=== PATIENT | female | born 2000 | race Caucasian/White ===

== ENCOUNTER 2022-07-24 16:27 | Emergency (ER) | payer BC, SELFPAY ==
[2022-07-24 16:33] VITALS: BP 115/72; PULSE 110; RESP 14; TEMP 37.1; O2SAT 100
--- NOTE | 2022-07-24 16:34 | ED.URI ---
HPI - URI/Sore Throat General Chief Complaint: Upper Respiratory Infection Stated Complaint: sore throat fever Time Seen by Provider: 07/24/22 16:34 Source: patient, family and RN notes reviewed History of Present Illness HPI Narrative: Patient is a 21-year-old female who presents the urgent care with complaints of sore throat, fever and runny nose. Patient states symptoms started on Sunday and denies of any ill exposures. Patient has been taking Tylenol for her symptoms. Also reports of a mild headache. No other acute complaints. No acute distress noted. Patient aware of the plan of care. Some parts of this dictation were generated by voice recognition software and may contain typographical and/or grammatical inaccuracies. Related Data Home Medications Medication Instructions Recorded Confirmed norelgestromin 150 mcg-e.estradiol 1 patch transdermal WEEKLY 07/24/22 07/24/22 35 mcg/24 hr weekly transderm patch (Xulane) Allergies Allergy/AdvReac Type Severity Reaction Status Date / Time No Known Allergies Allergy Verified 07/24/22 16:56 Review of Systems Review of Systems: CONSTITUTIONAL: Reports a fever EYES: Denies visual changes, redness, or discharge. ENT: Reports of rhinorrhea and sore throat CARDIOVASCULAR: Denies chest pain, palpitations, or edema. RESPIRATORY: Denies cough or dyspnea. GASTROINTESTINAL: Denies abdominal pain, nausea, vomiting, or diarrhea. GENITOURINARY: Denies dysuria or hematuria. SKIN: Denies rash or itching. MUSCULOSKELETAL: Denies back pain, joint pain, or myalgia. NEUROLOGIC: Denies headache, numbness, or weakness. All other systems reviewed are negative, except as documented in HPI. PMFSH Comments At the time of my signature, I reviewed and agree with the nursing past medical, surgical, social, and family history. There is no relevant family history pertinent to the patient complaint. Exam Narrative: GENERAL: This is a well-nourished, well-developed patient, in no apparent distress. HEAD: normocephalic, atraumatic. EYES: PERRL. Sclera clear/white. Vision is grossly intact. EARS: External ears normal, auditory canals clear and without drainage, TMs normal without perforation. Hearing grossly intact. NOSE: External nose normal with no obvious nasal discharge, nares without redness, clear rhinorrhea. THROAT: Mucous membranes moist. Mild erythema noted posterior pharynx with moderate postnasal drainage NECK: Neck supple, non-tender without lymphadenopathy CARDIOVASCULAR: Regular rate and rhythm without murmurs, gallops, or rubs. RESPIRATORY: Clear to auscultation. Breath sounds equal bilaterally. No wheezes, rales, or rhonchi. SKIN: warm, intact with no suspicious lesions or rash, good texture and turgor. NEURO: awake, alert, and oriented to person, place and time. There were no obvious focal neurologic abnormalities. EXTREMITIES: No clubbing, cyanosis, or edema. Course Course Level of Care: Express Care Visit Vital Signs Vital signs: Vital Signs Temperature 98.8 F 07/24/22 16:33 Pulse Rate 110 H 07/24/22 16:33 Respiratory Rate 14 07/24/22 16:33 Blood Pressure 115/72 07/24/22 16:33 Pulse Oximetry 100 07/24/22 16:33 Oxygen Delivery Room Air 07/24/22 16:33 Temperature 98.8 F 07/24/22 16:33 Pulse Rate 110 H 07/24/22 16:33 Respiratory Rate 14 07/24/22 16:33 Blood Pressure 115/72 07/24/22 16:33 Pulse Oximetry 100 07/24/22 16:33 Oxygen Delivery Room Air 07/24/22 16:33 Reviewed MDM - URI/Sore Throat MDM Narrative Medical decision making narrative: Reviewed lab results with the patient. She is aware that strep swab was negative. Educated patient on culture we will call within 72 hours if culture is positive and antibiotics necessary. Advised the patient to use [id number] Claritin or Zyrtec during the day and Benadryl prior to bedtime. Use Tylenol/ibuprofen as needed. Do not sleep with a fan on or the windows open. Use a
== END 2022-07-24 17:03 | disposition home or self-care (01) ==
PROVIDERS: Emergency Provider Nurse Practitioner Family; PCP Family Medicine
DX: J02.9 Acute pharyngitis, unspecified (principal)
CPT/HCPCS: 87081; 87880; 99213; G0463

== ENCOUNTER 2023-09-27 10:34 | Emergency (ER) | payer BC, SELFPAY ==
[2023-09-27 10:45] VITALS: BP 115/79; PULSE 81; RESP 16; TEMP 37.1; O2SAT 100
--- NOTE | 2023-09-27 11:26 | ED.GENADULT ---
HPI - General Adult General Chief complaint: Ear Stated complaint: Ear Pain/Sore Throat/Headache/Shortness of Breath Time Seen by Provider: 09/27/23 11:26 Source: patient, RN notes reviewed and old records reviewed Mode of arrival: ambulatory Limitations: no limitations History of Present Illness HPI narrative: 22-year-old female presents to the [facility] complaints of right ear pain, sore throat, headache, cough for 1 week. Denies fevers. Has taken DayQuil and NyQuil, Sudafed with no relief. Onset (ago): week(s) (1) Related Data Allergies Allergy/AdvReac Type Severity Reaction Status Date / Time No Known Allergies Allergy Verified 07/24/22 16:56 Review of Systems Review of Systems: All systems reviewed & are unremarkable except as noted in HPI and below Constitutional: Constitutional: Reports no additional constitutional complaints Eyes: Eyes: Reports no additional eye complaints ENT: Reports as per HPI, Denies ear discharge, Reports otalgia (right) and Reports sore throat Cardiovascular: Cardiovascular: Reports no additional cardiovascular complaints, Denies chest pain and Denies dyspnea Respiratory: Respiratory: Reports no additional respiratory complaints, Denies chest congestion, Denies cough and Denies dyspnea Gastrointestinal: Gastrointestinal: Reports no additional gastrointestinal complaints, Denies abdominal pain, Denies nausea and Denies vomiting Musculoskeletal: Musculoskeletal: Reports no additional musculoskeletal complaints Integumentary/Breasts: Skin/Breast: Reports system reviewed and no additional complaints, except as docu Neurologic: Reports system reviewed and no additional complaints, except as documented Psychiatric: Psychiatric: Reports no additional psychiatric complaints Allergic/Immunologic: Allergic/Immunologic: Reports no additional allergic/immunologic complaints PMFSH Comments At the time of my signature, I reviewed and agree with the nursing past medical, surgical, social, and family history. There is no relevant family history pertinent to the patient complaint. Exam Const: General: cooperative, healthy appearing, comfortable, no acute distress, well developed, alert and well nourished Nutritional Appearance: well nourished Orientation/consciousness: patient oriented x3 Limitations: no limitations HENMT: Head: normal to inspection Ears: hearing grossly normal bilaterally, external ears normal and TM abnormal bulging on the right and wth effusion serous bilateral; not erythematous, with no loss of landmarks and not perforated Face/Nose/Sinus: Normal external nose present, Normal nares present, Normal nasal mucous membranes and turbinates present, Nasal discharge present clear bilateral, normal facial exam and face symmetric Face and sinus: normal facial exam and face symmetric Mouth: Yes Normal oral and palatal mucosa present, Yes lip normal and Yes moist mucous membranes Throat: posterior oropharynx normal, uvula midline and postnasal drainage Eyes: General: appearance normal, both eyes and all related structures Alignment and Position: alignment normal Periorbital: periorbital findings normal Pupils: Equal, round and reactive pupils present EOM: EOMs intact bilaterally Neck: Neck: normal visual inspection, full ROM, no lymphadenopathy and no meningeal signs Chest: Chest palpation & inspection: normal inspection of the chest Resp: Effort & Inspection: normal respiratory effort and able to speak in complete sentences Auscultation: clear to auscultation bilaterally, no crackles, no rales, no rhonchi and no wheezes Cardio: Rate: regular rate Rhythm: regular rhythm Back/Spine/Pelvis: Cervical Spine: cervical ROM normal Skin: General skin exam: normal color and no rashes or lesions noted Lesions: no lesions Rashes: no rashes Wounds: no wounds Neuro: General: patient oriented x3, gait normal, tone normal, moves all extremities and no meningeal signs Cranial nerves: Yes Eq
== END 2023-09-27 11:53 | disposition home or self-care (01) ==
PROVIDERS: Emergency Provider Nurse Practitioner; PCP Family Medicine
DX: H65.01 Acute serous otitis media, right ear (principal); J06.9 Acute upper respiratory infection, unspecified
CPT/HCPCS: 99213; G0463

== ENCOUNTER 2024-03-29 13:36 | Emergency (ER) | payer BC, SELFPAY ==
[2024-03-29 13:40] VITALS: BP 131/73; PULSE 79; RESP 14; TEMP 36.7; O2SAT 100
--- NOTE | 2024-03-29 14:07 | ED.URI ---
HPI - URI/Sore Throat General Chief Complaint: Upper Respiratory Infection Stated Complaint: cough/ear/congestion Time Seen by Provider: 03/29/24 14:00 Source: patient, RN notes reviewed and old records reviewed Mode of arrival: ambulatory Limitations: no limitations History of Present Illness HPI Narrative: 23-year-old female who presents to Express Care complaints sinus congestion drainage and right ear past 4 days. Patient's reports that she had a fever on Sunday max of 100.6F. She reports that she has been taking DayQuil and also Ibuprofen for her symptoms without resolution. MD elicited complaint: rhinorrhea, nasal congestion and other (right ear pain) Onset (ago): day(s) (4) Pain scale (0-10): 7 Able to tolerate fluids by mouth: Yes Treatments prior to arrival: ibuprofen and other (DayQuil) Related Data Allergies Allergy/AdvReac Type Severity Reaction Status Date / Time No Known Allergies Allergy Verified 03/29/24 14:01 Review of Systems Review of Systems: CONSTITUTIONAL: Denies malaise, chills, sweats, or fever. EYES: Denies visual changes, redness, or discharge. ENT: Reports rhinorrhea, congestion, sinus pain, right otalgia and sore throat. CARDIOVASCULAR: Denies chest pain, palpitations, or edema. RESPIRATORY: Reports cough.? Denies dyspnea. GASTROINTESTINAL: Denies abdominal pain, nausea, vomiting, diarrhea SKIN: Denies rash or itching. MUSCULOSKELETAL: Denies myalgia. NEUROLOGIC: Denies headache. All systems reviewed & are unremarkable except as noted in HPI and below PMFSH Past Medical History Medical History Anxiety and depression Surgical History Surgical History History of placement of ear tubes History of tonsillectomy Social History Social History Smoking status: Current every day smoker Tobacco type: e-cigarettes/vaping Alcohol intake: current Alcohol use details: social Substance use type: does not use Living arrangements: with family Gender identity (if verbalized by the patient): Female Comments At time of signature, agree with nursing past medical, surgical, social and family history. There is no relevant family history pertinent to the presenting complaint Exam Narrative: GENERAL: Well-appearing, well-nourished, and in no acute distress. HEAD: Normocephalic EYES: PERRLA, conjunctivae clear ENT: Nares clear, turbinates edematous and erythematous, clear discharge. Mucous membranes moist.Right TM red with luisa reness to canal,Left TM pearly olivares with dull light reflex b; no tragal tenderness. Oropharynx erythematous without lesions. Tonsils not present and throat without exudate, no drooling, no hoarseness, no trismus, uvula midline. NECK: Supple. No lymphadenopathy CHEST: Clear to auscultation, breath sounds equal. No wheezing, rhonchi, rales, or stridor. No respiratory distress, speaks in full sentences.SAO2 100% on room air HEART: Regular rate and rhythm. No murmur heard. SKIN: Warm, dry, no rash. NEURO: Alert and oriented x3. PSYCH: Normal mood and affect Course Course Emergency Course: Patient is aware of diagnosis, understands and agrees to treatment plan.? Anticipatory guidance given.? Patient agrees to follow-up as directed and is aware of reasons to seek care at the emergency department. Portions of this record may have been created with voice recognition software Level of Care: Express Care Visit Vital Signs Vital signs: Vital Signs Temperature 36.7 C 03/29/24 13:40 Pulse Rate 79 03/29/24 13:40 Respiratory Rate 14 03/29/24 13:40 Blood Pressure 131/73 03/29/24 13:40 Pulse Oximetry 100 03/29/24 13:40 Oxygen Delivery Room Air 03/29/24 13:40 Temperature 36.7 C 03/29/24 13:40 Pulse Rate 79 03/29/24 13:40 Respiratory Rate 1
== END 2024-03-29 14:20 | disposition home or self-care (01) ==
PROVIDERS: Emergency Provider Registered Nurse; PCP Family Medicine
DX: H66.91 Otitis media, unspecified, right ear (principal); H60.91 Unspecified otitis externa, right ear; F17.290 Nicotine dependence, other tobacco product, uncomplicated
CPT/HCPCS: 99213; G0463

== ENCOUNTER 2024-11-24 16:37 | Emergency (ER) | payer BC, SELFPAY ==
--- OUTSIDE RECORDS SUMMARY | 2024-11-24 16:39 | XMS_ITS | Clinical Summary ---
Author Organization [facility] Address [address] [place] [address] Phone Care Team Providers Care Petroleum Laboratory Technician Name Role Phone Chas Chambers MD Primary Care Provider [phone] Allergies No known active allergies Medications FLUoxetine (PROzac) 20 MG CapsuleIndicatio ns:Anxiety and depression Take 1 Capsule by mouth daily. 90 Capsule 2 Active Norelgestromin-E th Estradiol (Xulane) 150-35 MCG/24HR PATCH WEEKLYIndication s:Heavy Menstrual Bleeding 1 Patch by Transdermal route every 7 days. X 3 then one week without patch Indications: Excessive Amount of Menstrual Volume 3 Patch 11 2 Active SUMAtriptan (IMITREX) 100 MG TabletIndication s:Chronic intractable headache, unspecified headache type Take 1 Tablet by mouth daily as needed for Migraine. Use as directed. May repeat dose in 2 hours if headache recurs. 9 Tablet 3 2 Active ondansetron (ZOFRAN-ODT) 4 MG TABLET DISPERSIBLEIndic ations:Chronic intractable headache, unspecified headache type Take 1 Tablet by mouth every 8 hours as needed for Nausea - 1st line. 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 Immunizations Immunization Administration Dates Next Due Covid-19, Mrna, Lnp-s, Pf, 3 0 Mcg/0.3 Ml Dose (LiquidPlanner) 08/02/2021,07/12/2021 DTAP VACCINE 05/23/2007, 5,07/28/2003,03/26,02/19/2003 HEP B/HIB Combined Vaccine 07/30/2003,03/26/2003 ,02/19/2003 Hepatitis B Vaccine 07/30/2003,03/26/2003,2002 Hib Vaccine,unspecified Formulation 04/27/2005,0 03/26/2003,02/19/2003 Hpv, Unspecified Formulation 11/19/2017,05/15/20 17 Human Papillomavirus (HPV) 9 -valent Vaccine 03/22/2018,11/19/2017,05/15/2017 Inactivated Polio Vaccine 05/23/2007,05/2004,03/26/2003,02/19 Influenza Vaccine, Quadrivalent, PF 06/27/2022,1 ,07/29/2020 MMR Vaccine 05/23/2007,01/21/2004 Meningococcal Group B OMV 06/27/2022 Meningococcal MCV4O 07/29/2020 Meningococcal Vaccine 07/29/2020,05/15/2017,05/15 TDAP Vaccine 05/15/2017,05/29/2014 Varicella Vaccine Live 05/23/2007,04/27/2005 Family History Medical History Relation Name Comments Leukemia/Lymphoma Father Diabetes Mother Narcolepsy Mother Relation Name Status Comments Father Alive Mother Alive Social History Tobacco Use Types Packs/Day Years Used Date Smoking Tobacco: Never Smokeless Tobacco: Never Tobacco Cessation:Counseling Given: Yes Alcohol Use Standard Drinks/Week Comments Never 0 (1 standard drink = 0.6 oz pur e alcohol) AUDIT-C Answer Date Recorded Q1: How often do you have a drink containing alc ohol? Never 11/04/2020 Average Number of Drinks Not on file 021 Frequency of Binge Drinking Not on file 10/16 PHQ-2 Answer Date Recorded Total Score - Questions 1-9 0 10/16 Education Answer Date Recorded What is the highest level of school you have completed or the highest degree you have received? 12th grade 11/10/2021 Comments No Sex and Gender Information Value Date Recorded Sex Assigned at Not on file Legal Sex Female 8:34 PM CDT Gender Identity Not on file Sexual Orientation Not on file Last Filed Vital Signs Vital Sign Reading Time Taken Comments Blood Pressure 114/64 06/27/2022 1:07 PM CDT Pulse 122 06/27/2022 1:07 PM CDT Temperature 36.6 C (97.8 F) 06/27/2022 1:07 PM CDT Respiratory Rate 14 06/27/2022 1:07 PM CDT Oxygen Saturation 98% 06/27/2022 1:07 PM CDT Inhaled Oxygen Concentration - - Weight 60.1 kg (132 lb 8 oz) 06/27/2022 1:07 PM CDT Height 157.5 cm (5' 2 ) 06/27/2022 1:07 PM CDT Body Mass Index 24.23 06/27/2022 1:07 PM CDT Plan of Treatment Health Maintenance Due Date Last Done Comments Hepatitis C Virus (HCV) Screening 2002 Meningococcal B Immunization (2 of 2 - Bexsero SCDM 2-dose series) 12/25/2022 06/27/2022 Influenza Immunization (#1) 06/15/202406/15, 10/13/2021, 07/29/2020 SARS-COV-2 Immunization ( season) 2024 08/02/2021, 07/12/2021 DTaP/Tdap/Td Immunization (8 - Td or Tdap) 05/15/2027 05/15/2017, 05/29/2014, 05/23/2007, Additional history exists Respiratory Syncytial Virus (RSV) Immunization (Adult) (1 - 1-dose 75+ series) 2077 Hepatitis B Immunization Completed 003, 07/30/2003, 03/26/2003, Additional history exists Measles Mumps Rubella (MMR) Immunization Discontinued 05/23/2007, 01/21/2004 Polio (IPV) Immunization Discontinued 007, 01/21/2004, 03/26/2003, Additional history exists Varicella Immunization Discontinued 05/23/2007, 2004 Human Papillomavirus (HPV) Immunization Completed 03/22/2018, 11/19/2017, 11/19/2017, Additional history exists Meningococcal Immunization (ACWY) Completed 07/29/2020, 07/29/2020, 05/15/2017, Additional history exists Pneumococcal Immunization Combined Aged Out No longer eligible based on patient's age to complete this topic Rotavirus Immunization Aged Out No lo nger eligible based on patient's age to complete this topic Insurance [facility] Care Teams Petroleum Laboratory Technician Relationship Specialty Start Date End Date Chas Chambers MD PCP - General Family Medicine 08/05/20
--- OUTSIDE RECORDS SUMMARY | 2024-11-24 16:40 | XMS_ITS | Clinical Summary ---
Author Organization [facility] Address [address] [place] [address] Phone Care Team Providers Care Director Stars Name Role Phone DAY GOMEZ DO Unavailable [phone] Reason for Visit and Chief Complaint The Chief Complaint is: Per mom still having HAs and has been to 2 eye doctors and both said LT eyestill has some optic swelling--recommended her seeing eye doctor at [facility] Problems Includes: Problems addressed during this encounter and other active Problems All Visits Onset Date Resolved Date Provider Condition S tatus Asthma 05/25/2014 LISA Pedro PA-C Active Last Documented On 05/15/2017 11:44AM ; [facility] Note: Worse as a child--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 Plan of Treatment Referrals To Diagnosis Ophthalmology [facility] - [address] [place] [address] - Optic papillitis, left eye Note: Children[facility] please Last Documented On 8 1:41PM ; [facility] Assessments Includes: Assessments from this encounter Findings - Optic papillitis ? - Last Documented On 10/26/2017 1:43PM ; [facility] Medical Equipment - Implanted Devices Includes: Current Devices No Medical Equipment Recorded Medications Includes: Medications discussed during this encounter and other current Medications Current Medications (continue as prescribed) Amoxicillin-Pot Clavulanate 875-125 MG Oral Tablet 02/18/2024 Provider: ALANNA CLEMENTP-C Diagnosis: Otitis media, unspecified, left ear One tablet twice a day Last Documented On 4 4:10PM By Alanna ALAMO ; [facility] Paxil 20MG Oral Tablet 11/19/2017 Provider: AJVON HANCOCK MD Diagnosis: Anxiety disorder , unspecified One tablet daily Last Documented On 8 11:17PM By SELENA HANCOCK MD ; [facility] Lo Loestrin Fe 1 MG-10 MCG /10 MCG Oral Tablet 03/13/2017 Provider: SELENA Potts Diagnosis: Dysmenorrhea, un specified Take one daily at the same t bernardo each day. Last Documented On 7 5:02PM By SELENA HANCOCK MD ; [facility] Medications Administered Includes: Administered Medications from this encounter No Administered Medications Recorded Results Includes: Results discussed during this encounter No Results Recorded For Specified Dates History of Present Illness Includes: History of Present Illness from this encounter No History of Present Illness Recorded Social History Description Last Updated Smoking status : Never smoker 11/19/2017 Last Documented On 8 1:43PM ; [facility] No tobacco use 05/15/2017 Last Documented On 8 1:43PM ; [facility] Not using alcohol 05/15/2017 Last Documented On 8 1:43PM ; [facility] Not using drugs 05/15/2017 Last Documented On 8 1:43PM ; [facility] Not sexually active has never been 10/03 Last Documented On 8 1:43PM ; [facility] Playing sports poms 07/27/2016 Last Documented On 8 1:43PM ; [facility] Using seatbelts 06/12/2016 Last Documented On 8 1:43PM ; [facility] The racial background was unknown ethnic minority 05/25/2014 Last Documented On 8 1:43PM ; [facility] Child enrolled in day-care 03/01/2009 Last Documented On 8 1:43PM ; [facility] Lives with parents 03/01/2009 Last Documented On 8 1:43PM ; [facility] Medical History Includes: Medical History addressed during this encounter Description Last Updated A recent examination by an ophthalmologi st 08/201605/15/2017 Last Documented On 8 1:43PM ; [facility] Blood pressure was not high 05/15/2017 Last Documented On 8 1:43PM ; [facility] No cardiac problems 05/15/2017 Last Documented On 8 1:43PM ; [facility] No exposure to tuberculosis 05/15/2017 Last Documented On 8 1:43PM ; [facility] No history of asthma 05/15/2017 Last Documented On 8 1:43PM ; [facility] No orthopedic problems 05/15/2017 Last Documented On 8 1:43PM ; [facility] No Surgery 05/15/2017 Last Documented On 8 1:43PM ; [facility] No physical trauma 07/27/2016 Last Documented On 8 1:43PM ; [facility] No physical trauma while playing a sport 07/27/2016 Last Documented On 8 1:43PM ; [facility] 0 05/30/2016 Last Documented On 8 1:43PM ; [facility] No other medical history reported Signs of Insulin Resistance 05/25/2014 Last Documented On 8 1:43PM ; [facility] No recent severe illness or injury 05/25 Last Documented On 8 1:43PM ; [facility] Currently wearing eyeglasses 05/25/2014 Last Documented On 8 1:43PM ; [facility] No hearing problems 05/25/2014 Last Documented On 8 1:43PM ; [facility] No heart murmur 05/25/2014 Last Documented On 8 1:43PM ; [facility] No history of concussion 05/25/2014 Last Documented On 8 1:43PM ; [facility] No history of delayed milestones 014 Last Documented On 8 1:43PM ; [facility] No history of diabetes mellitus 05/25/20 14 Last Documented On 8 1:43PM ; [facility] No history of hematologic disorder 05/25 Last Documented On 8 1:43PM ; [facility] No history of sickle cell abnormality Last Documented On 8 1:43PM ; [facility] No loss of function of one of paired org ans 05/25/2014 Last Documented On 8 1:43PM ; [facility] No previous hospitalizations 05/25/2014 Last Documented On 8 1:43PM ; [facility] No trauma to the head 05/25/2014 Last Documented On 8 1:43PM ; [facility] Not born with congenital abnormalities 0 05/25/2014 Last Documented On 8 1:43PM ; [facility] Not carrying hemophilia A 05/25/2014 Last Documented On 8 1:43PM ; [facility] section 03/01/2009 Last Documented On 8 1:43PM ; [facility] No frequent sore throats 03/01/2009 Last Documented On 8 1:43PM ; [facility] No history of pneumonia 03/01/2009 Last Documented On 8 1:43PM ; [facility] Recurrent bacterial ear infections durin g childhood 03/01/2009 Last Documented On 8 1:43PM ; [facility] Family History Includes: Family History addressed during this encounter Description Last Updated Family history of sudden ear ly deaths great grandpas- heart exploded, lung cancer 05/15/2017 Last Documented On 8 1:43PM ; [facility] Maternal history of blood pressure was h igh 02/19/2017 Last Documented On 8 1:43PM ; [facility] Maternal history of diabetes mellitus Last Documented On 8 1:43PM ; [facility] Maternal history of family h istory of sudden early deaths Maternal GF, paternal GF and Gr uncle all [place] at 47 02/19/2017 Last Documented On 8 1:43PM ; [facility] Paternal history of arthritis 02/19/2017 Last Documented On 8 1:43PM ; [facility] Paternal history of family history of bi rth defects 02/19/2017 Last Documented On 8 1:43PM ; [facility] Paternal history of family h istory of cancer --FATHER has CML--diagnosed 11/201602/19/2017 Last Documented On 8 1:43PM ; [facility] Family history of cancer --FATHER has CM L--diagnosed 11/201611/24/2016 Last Documented On 8 1:43PM ; [facility] Discussion of family health status was jayy hale 06/12/2016 Last Documented On 8 1:43PM ; [facility] Family history of diabetes mellitus 05/15 Last Documented On 8 1:43PM ; [facility] Family history of arthritis 03/01/2009 Last Documented On 8 1:43PM ; [facility] Family history of defects 03/01/20 09 Last Documented On 8 1:43PM ; [facility] Family history of blood pressure was hig h 03/01/2009 Last Documented On 8 1:43PM ; [facility] No bleeding problems 03/01/2009 Last Documented On 8 1:43PM ; [facility] No family history of convulsions 009 Last Documented On 8 1:43PM ; [facility] No family history of stroke syndrome Last Documented On 8 1:43PM ; [facility] Review of Systems Includes: Review of Systems from this encounter No Review of Systems Recorded Mental Status Includes: Mental Status from this encounter No Mental Status Recorded Functional Status Includes: Functional Status from this encounter No Functional Status Recorded Physical Exam Includes: Physical Exam from this encounter No Physical Exam Recorded Allergies Includes: Active Allergies No Known Allergies Encounters Encounter Provider Location Date Check-In Time Check- Out Time Diagnosis [Patient Encounter] LISA SANTANA PA-C 8 1:40PM 11:59PM Optic Papillitis Insurance Includes: Active Insurance Policies Plan Name Member ID Group # Subscriber Relationship Effect dayana Dates 1 - [facility] [id number] LIILA STOUT Child Clinical Notes Includes: Clinical Notes from this encounter No Clinical Notes Recorded
--- OUTSIDE RECORDS SUMMARY | 2024-11-24 16:40 | XMS_ITS ---
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 Plan of Treatment Findings Encounter Date Ordered patient will call fo r appointment as needed SICK VISIT with JUAN ASHFORD [facility]- 09/01/2020 Last Documented On 0 7:48PM ; [facility] Ordered return to the clinic if condition worsens or new symptoms arise SICK VISIT with JUAN ASHFORD [facility]- 09/01/2020 Last Documented On 0 7:48PM ; [facility] Ordered Clinical summary pro vided to patient . Plan discussed and patient/parent/caregiver states understanding PROBLEM VISIT with LISA SANTANA PA-C 10/11/2017 Last Documented On 7 2:08PM ; [facility] Ordered follow-up visit as n eeded with an office visit. Will culture urine and go from there. Take diflucan. Increase water, urinate often, cranberry juice/pills. Call sooner if symptoms worsen/persist beyond 3-4 days PROBLEM VISIT with LISA SANTANA PA-C 10/11/2017 Last Documented On 7 2:08PM ; [facility] Ordered follow-up visit as n eeded with an office visit. SCHOOL PHYSICAL with LISA SANTANA PA-C 05/15/2017 Last Documented On 7 11:45AM ; [facility] Ordered Clinical summary pro vided to patient . Plan discussed and patient/parent/caregiver states understanding. Appt was originally made for nausea but came in for vaginal d/c--made a few recommendations for her HAs---wearing her glasses consecutively for 3 weeks, take OTC excedrin migraine PRN and decrease stress to see if that helps with HAs. If they persist will need to follow up with PCP--may need prophylactic meds?? Neuro referral?? SICK VISIT with LISA SANTANA PA-C 11/24/2016 Last Documented On 7 4:43PM ; [facility] Ordered follow-up visit as n eeded with an office visit. Discussed having brown discharge is normal with the Lo Loestrin. If the discharge persists can change control. Also stress can alter periods. Encourage to not skip any pills as spotting can occur with this. Call sooner if needed SICK VISIT with LISA SANTANA PA-C 11/24/2016 Last Documented On 7 4:43PM ; [facility] Ordered Clinical summary pro vided to patient . Plan discussed and patient/parent/caregiver states understanding SAME DAY SICK VISIT with LISA SANTANA PA-C 10/03/2016 Last Documented On 6 11:39AM ; [facility] Ordered follow-up visit as n eeded with an office visit. Push fluids, hot steamy showers, vicks. Hot tea with honey. OK to continue delsym and nyquil if needed. Labs today--if periods continue to be heavy will get pelvic ultrasound. Call sooner if symptoms worsen SAME DAY SICK VISIT with LISA SANTANA PA-C 10/03/2016 Last Documented On 6 11:39AM ; [facility] Ordered Clinical summary pro vided to patient . Plan discussed and patient/parent/caregiver states understanding MED CHECK with LISA SANTANA PA-C 09/06/2016 Last Documented On 6 4:55PM ; [facility] Ordered follow-up visit as n eeded with an office visit. Use the face wash, Rx cream then moisturize every night (CeraVe or Cetaphil are good). Continue your OCPs. Call sooner if needed MED CHECK with LISA SANTANA PA-C 09/06/2016 Last Documented On 6 4:55PM ; [facility] No ordered vaccines [facility] SPORTS PHYSICAL with SELENA HANCOCK MD 06/12/2016 Last Documented On 6 10:40AM ; [facility] Ordered Clinical summary pro vided to patient . Plan discussed and patient/parent/caregiver states understanding. Call in 3 months if you need refills. Discussed annual STD screening if you become sexually active CONSULTATION with LISA SANTANA PA-C 05/30/2016 Last Documented On 6 2:29PM ; [facility] Ordered return to the clinic if condition worsens or new symptoms arise CONSULTATION with LISA SANTANA PA-C 05/30/2016 Last Documented On 6 2:29PM ; [facility] Ordered patient will call fo r appointment as needed SPORTS PHYSICAL with SAMMI NOBLES [facility] 05/05/2015 Last Documented On 5 4:40PM ; [facility] Ordered return to the clinic if condition worsens or new symptoms arise SPORTS PHYSICAL with SAMMI NOBLES [facility] 05/05/2015 Last Documented On 5 4:40PM ; [facility] Ordered Clinical summary pro vided to patient . Plan discussed and patient/parent/caregiver states understanding SICK VISIT with LISA SANTANA PA-C 12/29/2014 Last Documented On 5 5:11PM ; [facility] Ordered follow-up visit as n eeded with an office visit. Push fluids, salt water gargles, throat lozenges. Change toothbrush after 48 hrs on antibiotic. Call if symptoms worsen/persist beyond 4 days SICK VISIT with LISA SANTANA PA-C 12/29/2014 Last Documented On 5 5:11PM ; [facility] Ordered Clinical summary pro vided to patient . Plan discussed and patient/parent/caregiver states understanding SICK VISIT with LISA SANTANA PA-C 12/02/2014 Last Documented On 5 8:44AM ; [facility] Ordered follow-up visit as n eeded with an office visit. Push fluids, hot steamy showers, vicks. Claritn/zyrtec or benadryl. Salt water gargles. Call if symptoms worsen/persist beyond 4 days SICK VISIT with LISA SANTANA PA-C 12/02/2014 Last Documented On 5 8:44AM ; [facility] Ordered Clinical summary pro vided to patient . Plan discussed and patient/parent/caregiver states understanding PROBLEM VISIT with LISA SANTANA PA-C 11/17/2014 Last Documented On 5 4:45PM ; [facility] Ordered follow-up visit as n eeded with an office visit. Take ibuprofen 3x/day for next week. Try sticking med in jello and swallow. ALternate local ice/heat x 20min, several times a day. Elevate and rest foot. Muscle creams--icyhot/bengay. NOHEMI wrap during the day. NO PE x 1 week. Call if symptoms worsen/persist beyond 1 week--will get xray PROBLEM VISIT with LISA SANTANA PA-C 11/17/2014 Last Documented On 5 4:45PM ; [facility] Ordered Clinical summary pro vided to patient . Plan discussed and patient understands SICK VISIT with LISA SANTANA PA-C 12/09/2013 Last Documented On 4 3:08PM ; [facility] Ordered follow-up visit as n eeded with an office visit. Sudafed PE 4x/day with daily flonase for ears. Heating pad to ear for pain. Call if symptoms worsen/persist SICK VISIT with LISA SANTANA PA-C 12/09/2013 Last Documented On 4 3:08PM ; [facility] Ordered Clinical summary pro vided to patient . Plan discussed and patient understands PROBLEM VISIT with LISA SATNANA PA-C 07/25/2013 Last Documented On 3 3:02PM ; [facility] Ordered follow-up visit as n eeded with an office visit. Continue ibuprofen daily. Local heat. Daily multivitamin. Use rolling pin/tennis ball to roll muscles out. Call if symptoms worsen PROBLEM VISIT with LISA SANTANA PA-C 07/25/2013 Last Documented On 3 3:02PM ; [facility] Ordered Clinical summary pro vided to patient . Plan discussed and patient understands SICK VISIT with LISA SANTANA PA-C 12/17/2012 Last Documented On 3 4:39PM ; [facility] Ordered follow-up visit as n eeded with an office visit. Fluids, rest. [place] diet (toast, crackers, small sips of sprite/gatoraide) if stomach is bothersome. Call if symptoms worsen/persist SICK VISIT with LISA SANTANA PA-C 12/17/2012 Last Documented On 3 4:39PM ; [facility] Ordered fluids SICK VISIT with SELENA LAWLER MD 06/08/2010 Last Documented On 0 10:22PM ; [facility] Ordered return to the clinic if condition worsens or new symptoms arise SICK VISIT with SELENA HANCOCK MD 06/08/2010 Last Documented On 0 10:22PM ; [facility] Ordered follow-up visit as n eeded with an office visit.. Parent encouraged to push fluids and call if sx are not resolving in the next few days. Patient will be treated for likely yeast due to swimming a lot and recent abx SICK VISIT with ANDREY TINOCO PA-C 05/09/2010 Last Documented On 0 3:08PM ; [facility] Ordered fluids SICK VISIT with SELENA LAWLER MD 02/28/2010 Last Documented On 0 12:09PM ; [facility] Ordered return to the clinic if condition worsens or new symptoms arise SICK VISIT with SELENA HANCOCK MD 02/28/2010 Last Documented On 0 12:09PM ; [facility] Ordered follow-up visit as n eeded with an office visit.. Rapid strep negative but will treat as strep due to appearance, strep smell, and exposure. If sx are not improving then parent to call within 2-3 days. Will plan on referring to ENT for consult for tonsillectomy due to frequencey of infections SICK VISIT with ANDREY TINOCO PA-C 02/25/2010 Last Documented On 0 10:05AM ; [facility] Ordered follow-up visit as n eeded with an office visit.. No school for 24 hours after starting abx. Patient to change toothbrush after 3 days. NSAIDs PRN. Parent to call if sx not improving within 48 hours SICK VISIT with ANDREY TINOCO PA-C 11/22/2009 Last Documented On 0 5:27PM ; [facility] Referrals To Diagnosis ENT Specialist [address] [place] [address] - ACUTE PHARYNGITIS Last Documented On 0 11:13AM ; [facility] ENT Specialist [address] [address] - STREP SORE THROAT Note: SHE SAW ENT AT [facility] DN THEY WANTED TO KNOW IF SHE HAD MORE ST, AND NO THEY SHOULD TAKE OUT HER TONSILS,...PLEASE SET UP APPT FOR THIS Last Documented On 0 9:26AM ; [facility] Ophthalmology [facility] - [address] [place] [address] - Optic papillitis, left eye Note: Children's please Last Documented On 8 1:41PM ; [facility] Instructions to patient Instructions for patient Last Documented On 0 7:47PM ; [facility] Maintain a healthy diet Last Documented On 7 10:42AM ; [facility] No Special Instructions or D evices Last Documented On 7 10:42AM ; [facility] Instructions for patient Last Documented On 5 4:00PM ; [facility] No Special Instructions or D evices Last Documented On 4 11:42AM ; [facility] Return to the clinic if cond ition worsens or new symptoms arise Last Documented On 1 12:01AM ; [facility] Return to the clinic if cond ition worsens or new symptoms arise Last Documented On 1 11:26PM ; [facility] Watch for signs/symptoms of infection Last Documented On 1 11:30PM ; [facility] Education and Decision Aids were provided during visit for: Discussed concerns Immunizat ions up to date. ~Recommend Gardasil series if not already completed Last Documented On 7 10:42AM ; [facility] Discussed use of seat belts Last Documented On 6 10:25AM ; [facility] Discussed sports safety Last Documented On 6 10:28AM ; [facility] Discussed safety practices U se neb w/ croupy cough; can use proair inhaler PRN--call 911 if no relief w/ symptoms Last Documented On 4 11:44AM ; [facility] Discussed concerns Getting i mmunizations at Sunday; recommended Gardasil series Last Documented On 4 11:44AM ; [facility] Assessments Includes: Assessments for all patient encounters Findings Encounter Date Acute pharyngitis COVID SICK VISIT- NE W PATIENT with ALANNA Fuchs MARTINES [employer]-C 02/18/2024 Last Documented On 4 4:03PM ; [facility] Assessment of cough COVID SICK VISIT- NE W PATIENT with ALANNA Fuchs MARTINES [employer] SAL[employer] ASSOCIATE-C 02/18/2024 Last Documented On 4 4:03PM ; [facility] Otitis media of the left ear COVID SICK VISIT- NEW PATIENT with ALANNA Fuchs MARTINES [employer] SAL[employer] ASSOCIATE-C 02/18/2024 Last Documented On 4 4:03PM ; [facility] COVID-19 infection SICK VISIT with JUAN OBANDO [employer] SALES ASSOCIATE-BC 09/01/2020 Last Documented On 0 7:48PM ; [facility] Optic papillitis ? [Patient Encounter] with ALPA SANTANA PA-C 10/26/2017 Last Documented On 8 1:43PM ; [facility] Assessment of dysuria PROBLEM VISIT with LISA SANTANA PA-C 10/11/2017 Last Documented On 7 2:08PM ; [facility] Vaginitis PROBLEM VISIT with LISA WEN PA-C 10/11/2017 Last Documented On 7 2:08PM ; [facility] Patient is approved for part icipation in School, Physical Education, and Sports for 1 year SCHOOL PHYSICAL with LISA E SANTANA PA-C 05/15/2017 Last Documented On 7 11:45AM ; [facility] Routine adolescent history a nd physical (12 - 19 yrs) SCHOOL PHYSICAL with LISA E SANTANA PA-C 05/15/2017 Last Documented On 7 11:45AM ; [facility] Anxiety disorder NOS 3 WK CK-UP with SELENA MAYEN MD 03/13/2017 Last Documented On 7 5:06PM ; [facility] Headache syndromes 3 WK CK-UP with SELENA MCFARLAND MD 03/13/2017 Last Documented On 7 5:06PM ; [facility] Generalized anxiety disorder PROBLEM VISIT with SELENA HANCOCK MD 02/19/2017 Last Documented On 7 6:47PM ; [facility] Headache syndromes PROBLEM VISIT with SELENA BOUCHER MD 02/19/2017 Last Documented On 7 6:47PM ; [facility] WORRIED WELL SICK VISIT with LISA E SANTANA PA-C 11/24/2016 Last Documented On 7 4:43PM ; [facility] Acute sinusitis SAME DAY SICK VISIT with LISA E SANTANA PA-C 10/03/2016 Last Documented On 6 11:39AM ; [facility] Menorrhagia SAME DAY SICK VISIT with LISA E SANTANA PA-C 10/03/2016 Last Documented On 6 11:39AM ; [facility] Sore throat SAME DAY SICK VISIT with LISA E SANTANA PA-C 10/03/2016 Last Documented On 6 11:39AM ; [facility] Acne MED CHECK with LISA E SANTANA PA-C 09/06/2016 Last Documented On 6 4:55PM ; [facility] Menorrhagia MED CHECK with LISA E SANTANA PA-C 09/06/2016 Last Documented On 6 4:55PM ; [facility] Arthralgia of the left pelvis/hip/femur PROBLEM VISIT with ALANNA MARTINES [employer]OR SALES ASSOCIATE-C 07/26/2016 Last Documented On 6 10:11AM ; [facility] Normal routine history and p hysical adolescent SPORTS PHYSICAL with SELENA HANCOCK MD 06/12/2016 Last Documented On 6 10:40AM ; [facility] Contraceptive surveillance CONSULTATION with TUCKER COATES-C 05/30/2016 Last Documented On 6 2:29PM ; [facility] Dysmenorrhea CONSULTATION with LISA COATES-C 05/30/2016 Last Documented On 6 2:29PM ; [facility] Pityriasis rosea SICK VISIT with SELENA SZYMANSKI MD 07/26/2015 Last Documented On 5 1:46PM ; [facility] Patient is approved for part icipation in School, Physical Education, and Sports for 1 year SPORTS PHYSICAL with SAMMI NOBLES PMHNP-BC MAJOR SALES ASSOCIATE-BC 05/05/2015 Last Documented On 5 4:40PM ; [facility] SCHOOL/SPORT PHYSICAL SPORTS PHYSICAL wi th SAMMI NOBLES PMHNP-BC MAJOR SALES ASSOCIATE-BC 05/05/2015 Last Documented On 5 4:40PM ; [facility] Group A streptococcus: B hem olytic pharyngitis SICK VISIT with LISA COATES-C 12/29/2014 Last Documented On 5 5:11PM ; [facility] Acute pharyngitis VIRAL SICK VISIT with LISA COATES-C 12/02/2014 Last Documented On 5 8:44AM ; [facility] Arthralgia of ankle / foot PROBLEM VISIT with FERNANDO COATES-C 11/17/2014 Last Documented On 5 4:45PM ; [facility] Patient is approved for part icipation in School, Physical Education, and Sports for 1 year SCHOOL PHYSICAL with LISA COATES-C 05/25/2014 Last Documented On 4 11:45AM ; [facility] Normal routine history and p hysical well-child (6 - 12) SCHOOL PHYSICAL with LISA SANTANA PA-C 05/25/2014 Last Documented On 4 11:45AM ; [facility] Eustachian tube dysfunction SICK VISIT with ALPA SANTANA PA-C 12/09/2013 Last Documented On 4 3:08PM ; [facility] Acute bronchitis SICK VISIT with SELENA SZYMANSKI MD 09/05/2013 Last Documented On 3 3:26PM ; [facility] Backache SICK VISIT with SELENA LAWLER MD 09/05/2013 Last Documented On 3 3:26PM ; [facility] Muscle spasm PROBLEM VISIT with LISA WEN PA-C 07/25/2013 Last Documented On 3 3:02PM ; [facility] Thoracic spinal enthesopathy PROBLEM VISIT with SELENA HANCOCK MD 05/09/2013 Last Documented On 3 2:12PM ; [facility] Acute serous otitis media SICK VISIT with LISA SANTANA PA-C 12/17/2012 Last Documented On 3 4:39PM ; [facility] Eustachian tube dysfunction SICK VISIT with ALPA SANTANA PA-C 12/17/2012 Last Documented On 3 4:39PM ; [facility] Abnormal weight gain PROBLEM VISIT with SELENA HORTON MD 08/11/2011 Last Documented On 1 12:01AM ; [facility] Fatigue PROBLEM VISIT with SELENA MCFARLAND MD 08/11/2011 Last Documented On 1 12:01AM ; [facility] Primary insomnia PROBLEM VISIT with SELENA BROWNLEE MD 08/11/2011 Last Documented On 1 12:01AM ; [facility] Fatigue PROBLEM VISIT with SELENA MCFARLAND MD 02/17/2011 Last Documented On 1 11:33PM ; [facility] Folliculitis PROBLEM VISIT with SELENA MCFARLAND MD 02/17/2011 Last Documented On 1 11:33PM ; [facility] Conjunctivitis SICK VISIT with ANDREY Diaz 06/28/2010 Last Documented On 0 11:39AM ; [facility] Streptococcal sore throat SICK VISIT with SELENA HANCOCK MD 06/08/2010 Last Documented On 0 10:22PM ; [facility] Vaginitis SICK VISIT with ANDREY COATES- C 05/09/2010 Last Documented On 0 3:08PM ; [facility] Otitis media of the right ear SICK VISIT with DENNIS TINOCO PA-C 05/03/2010 Last Documented On 0 1:03PM ; [facility] Tonsillitis SICK VISIT with ANDREY TINOCO PA- C 05/03/2010 Last Documented On 0 1:03PM ; [facility] Acute pharyngitis SICK VISIT with SELENA ALFARO MD 02/28/2010 Last Documented On 0 12:09PM ; [facility] Acute pharyngitis SICK VISIT with ANDREY TINOCO P A-C 02/25/2010 Last Documented On 0 10:05AM ; [facility] Acute pharyngitis SICK VISIT with MANDY GARCIA PA-C 12/24/2009 Last Documented On 0 10:12AM ; [facility] Group A streptococcus: B hem olytic pharyngitis SICK VISIT with MANDY GARCIA PA-C 12/24/2009 Last Documented On 0 10:12AM ; [facility] Acute pharyngitis likey strep SICK VISIT with DENNIS TINOCO PA-C 11/22/2009 Last Documented On 0 5:27PM ; [facility] Instructions Includes: Instructions for all patient encounters Instructions to patient Instructions for patient Last Documented On 0 7:47PM ; [facility] Maintain a healthy diet Last Documented On 7 10:42AM ; [facility] No Special Instructions or D evices Last Documented On 7 10:42AM ; [facility] Instructions for patient Last Documented On 5 4:00PM ; [facility] No Special Instructions or D evices Last Documented On 4 11:42AM ; [facility] Return to the clinic if cond ition worsens or new symptoms arise Last Documented On 1 12:01AM ; [facility] Return to the clinic if cond ition worsens or new symptoms arise Last Documented On 1 11:26PM ; [facility] Watch for signs/symptoms of infection Last Documented On 1 11:30PM ; [facility] Education and Decision Aids were provided during visit for: Discussed concerns Immunizat ions up to date. ~Recommend Gardasil series if not already completed Last Documented On 7 10:42AM ; [facility] Discussed use of seat belts Last Documented On 6 10:25AM ; [facility] Discussed sports safety Last Documented On 6 10:28AM ; [facility] Discussed safety practices U se neb w/ croupy cough; can use proair inhaler PRN--call 911 if no relief w/ symptoms Last Documented On 4 11:44AM ; [facility] Discussed concerns Getting i mmunizations at Sunday; recommended Gardasil series Last Documented On 4 11:44AM ; [facility] Medical Equipment - Implanted Devices Includes: Current and historical Devices No Medical Equipment Recorded Medications Includes: Current and historical Medications Current Medications (continue as prescribed) Amoxicillin-Pot Clavulanate 875-125 MG Oral Tablet 02/18/2024 Provider: ALANNA ALAMO Diagnosis: Otitis media, unspecified, left ear One tablet twice a day Last Documented On 4 4:10PM By Alanna ALAMO ; [facility] Paxil 20MG Oral Tablet 11/19/2017 Provider: JAVON HANCOCK MD Diagnosis: Anxiety disorder , unspecified One tablet daily Last Documented On 8 11:17PM By SELENA HANCOCK MD ; [facility] Lo Loestrin Fe 1 MG-10 MCG /10 MCG Oral Tablet 03/13/2017 Provider: SELENA Potts Diagnosis: Dysmenorrhea, un specified Take one daily at the same t bernardo each day. Last Documented On 7 5:02PM By SELENA HANCOCK MD ; [facility] Past Medications on file Diflucan 150MG Oral Tablet 10/11/2017 - 11/19/2017 Provider: LISA SANTANA PA-C Diagnosis: Acute vaginitis Take one tablet PO x 1, Repeat in 4 days PRN. Last Documented On 11/19/2017 1:10PM By AARON Padron LPN ; [facility] Paxil 10MG Oral Tablet 03/18/2017 - 11/19/2017 Provider: SELENA HANCOCK MD Diagnosis: Anxiety disorder , unspecified TAKE 1 TABLET BY MOUTH EVERY DAY Last Documented On 11/19/2017 9:05AM By [email or web address] ; [facility] Paxil 20MG Oral Tablet 03/13/2017 - 11/19/2017 Provider: SELENA HANCOCK MD Diagnosis: Anxiety disorder , unspecified One tablet daily Last Documented On 8 11:17PM By SELENA HANCOCK MD ; [facility] Paxil 10MG Oral Tablet 02/19/2017 - 03/18/2017 Provider: SELENA HANCOCK MD Diagnosis: Anxiety disorder , unspecified One tablet daily Last Documented On 7 11:35PM By SELENA HANCOCK MD ; [facility] Amoxicillin 500 MG Capsule 10/03/2016 - 11/19/2017 Provider: LISA SANTANA PA-C Diagnosis: Other acute sinu sitis One tablet three times a day Last Documented On 11/19/2017 9:05AM By [email or web address] ; [facility] Lo Loestrin Fe 1 MG-10 MCG / 10 MCG Tablet 09/06/2016 - 03/13/2017 Provider: LISA SANTANA PA-C Diagnosis: Dysmenorrhea, unspecified Take one daily at the same time each day. Last Documented On 7 5:01PM By SELENA HANCOCK MD ; [facility] Retin-A Micro Pump 0.04 % Gel 09/06/2016 - 11/19/2017 Provider: LISA SANTANA PA-C Diagnosis: Other acne Apply pea sized amount to face q HS after washin g. Last Documented On 11/19/2017 9:06AM By [email or web address] ; [facility] Lo Loestrin Fe 1 MG-10 MCG / 10 MCG Tablet 05/30/2016 - 09/06/2016 Provider: LISA SANTANA PA-C Diagnosis: Dysmenorrhea, unspecified Take one daily at the same time each day. Last Documented On 6 4:26PM By LISA SANTANA PA-C ; [facility] Bactrim DS 800-160 MG Tablet 08/25/2015 - 11/19/2017 Sharon pardo: SELENA ALFARO MD Diagnosis: One tablet twice a day Last Documented On 11/19/2017 9:06AM By [email or web address] ; [facility] Amoxicillin 250 MG/5ML Suspension, when reconstituted 12/29/2014 - 11/19/2017 Provider: LISA SANTANA PA-C Diagnosis: STREP SORE THROA T 3 tsp PO once daily Last Documented On 11/19/2017 9:06AM By [email or web address] ; [facility] Zithromax 200 MG/5ML OR SUSR 09/05/2013 - 11/17/2014 Provider: SELENA LAWLER MD Diagnosis: ACUTE BRONCHITIS 1 1/4 TSP QD FOR 7 DAYS Last Documented On 5 4:03PM By MANDY HARRIS MA ; [facility] Sulfamethoxazole-Trimethopri m 200-40 MG/5ML OR SUSP 07/03/2013 - 09/05/2013 Provider: LISA SANTANA PA-C Diagnosis: 1 and 1/2 tsp twice a day x 10 days Last Documented On 3 11:25AM By RUBINA EDWARDS ; [facility] Flonase 50 MCG/ACT NA SUSP 12/17/2012 - 09/05/2013 Provider: LISA SANTANA PA-C Diagnosis: DYSFUNCT EUSTACH COLEEN TUBE 2 sprays in each nostril onc e daily. Use generic Last Documented On 3 11:25AM By RUBINA EDWARDS ; [facility] Zithromax 200 MG/5ML OR SUSR 12/17/2012 - 09/05/2013 Provider: LISA SANTANA PA-C Diagnosis: AC SEROUS OTITIS MEDIA 2 and 1/2 tsp PO once daily x 5 days. Last Documented On 3 11:25AM By RUBINA EDWARDS ; [facility] cloNIDine HCl 0.1 MG OR TABS 08/11/2011 - 09/05/2013 Provider: SELENA HANCOCK MD Diagnosis: PERSISTENT INSOM LEATHA AT HS Last Documented On 3 11:25AM By RUBINA EDWARDS ; [facility] Tobrex 0.3% OP SOLN 06/28/2010 - 09/05/2013 Provider: ANDREY TINOCO PA-C Diagnosis: CONJUNCTIVITIS N OS 1-2 gtts every 4 hours for 7 days Last Documented On 3 11:25AM By RUBINA EDWARDS ; [facility] Amoxicillin 400 MG/5ML OR SUSR 06/08/2010 - 09/05/2013 Provider: SELENA HANCOCK MD Diagnosis: ACUTE PHARYNGITI S 2 TSP QD FOR 10 DAYS Last Documented On 3 11:25AM By RUBINA EDWRADS ; [facility] Diflucan 40 MG/ML OR SUSR 05/09/2010 - 09/05/2013 Prov ider: ANDREY TINOCO PA-C Diagnosis: VAGINITIS NOS 3 mL po once daily for 5 day Last Documented On 3 11:25AM By RUBINA EDWARDS ; [facility] Nystatin [id number] UNIT/GM EX CREA 05/09/2010 - 09/05/2013 Provider: ANDREY Diaz Diagnosis: VAGINITIS NOS apply to affected area tid-qid Last Documented On 3 11:25AM By RUIBNA EDWARDS ; [facility] Augmentin 400-57 MG OR CHEW 05/03/2010 - 09/05/2013 Provider: ANDREY Diaz Diagnosis: OTITIS MEDIA NOS one BID x 10 days Last Documented On 3 11:25AM By RUBINA EDWARDS ; [facility] Ofloxacin 0.3% OP SOLN 05/03/2010 - 09/05/2013 Provide r: ANDREY TINOCO PA-C Diagnosis: OTITIS MEDIA NOS 5 gtts R ear once daily for 7 days Last Documented On 3 11:25AM By RUBINA EDWARDS ; [facility] Amoxicillin 400 MG/5ML OR SUSR 02/28/2010 - 06/08/2010 Provider: SELENA HANCOCK MD Diagnosis: ACUTE PHARYNGITI S 2 TSP QD FOR 10 DAYS Last Documented On 0 5:06PM By SELENA HANCOCK MD ; [facility] Zithromax 200 MG/5ML OR SUSR 02/25/2010 - 09/05/2013 Provider: ANDREY Diaz Diagnosis: ACUTE PHARYNGITI S one and 1/2 tsp QD x 5 days Last Documented On 3 11:25AM By RUBINA EDWARDS ; [facility] Zithromax 200 MG/5ML OR SUSR 12/24/2009 - 09/05/2013 Provider: MANDY MURRAY PA-C Diagnosis: STREP SORE THROA T 1.5 tsp PO daily for 5 days. Last Documented On 3 11:25AM By RUBINA EDWARDS ; [facility] Amoxicillin 400 MG/5ML OR SUSR 11/22/2009 - 02/28/2010 Provider: ANDREY Diaz Diagnosis: ACUTE PHARYNGITI S 1 and 1/2 tsp tid x 10 days Last Documented On 0 9:33AM By SELENA HANCOCK MD ; [facility] Medications Administered Includes: Administered Medications in patient's chart No Administered Medications Recorded Vital Signs Includes: Vital Signs from 11/24/2023 through 11/24/2024 Vital Name 02/18/2024 03:41P Pulse Rate-Sitting (bpm) 66 Respiration Rate (breaths/min) 21 Temp-Oral (F) 98.9 Height (in) 62 Weight (lb) 112.8 Body Mass Index 20.6 Body Surface Area 1.5 Oxygen Saturation (%) 99 Last Documented: On 02/18/2024 3:42PM ; [facility] Results Includes: Results from 11/24/2023 through 11/24/2024 Group A strep [facility] Ordered by ALANNA ALAMO on 0 02/18/2024 Collected: Reported: 02/18/2024 15:51 Last Documented On 4 3:51PM ; [facility] Reviewed on 02/18/2024; All test results are final unless otherwise noted. Rapid Strep NEG N (Normal) Last Documented On 4 3:51PM ; [facility] LOT # AND EXP. DATE [id number] 08/15/26 N (Normal) Last Documented On 4 3:51PM ; [facility] INT. QC ACCEPTABLE? YES N (Normal) Last Documented On 4 3:51PM ; [facility] SARS COVID-19 FLU A & B [facility] Ordered by ALANNA ALAMO on 0 02/18/2024 Collected: Reported: 02/18/2024 15:51 Last Documented On 4 3:51PM ; [facility] Reviewed on 02/18/2024; All test results are final unless otherwise noted. COVID NEG N (Normal) Last Documented On 4 3:51PM ; [facility] INFLUENZA A NEG (Negative) B (Better) Last Documented On 4 3:51PM ; [facility] INFLUENZA B NEG (negative) N (Normal) Last Documented On 4 3:51PM ; [facility] INT. QC ACCEPTABLE? YES N (Normal) Last Documented On 4 3:51PM ; [facility] LOT # & EXP. DATE [id number] 10/02/24 N (Normal) Last Documented On 4 3:51PM ; [facility] History of Present Illness History of Present Illness not supported for this document type No History of Present Illness Recorded Social History Description Last Updated Current smoker 02/18/2024 Last Documented On 4 4:03PM ; [facility] Smoking status : Never smoker 11/19/2017 Last Documented On 8 12:36AM ; [facility] No tobacco use 05/15/2017 Last Documented On 7 11:45AM ; [facility] Not using alcohol 05/15/2017 Last Documented On 7 11:45AM ; [facility] Not using drugs 05/15/2017 Last Documented On 7 11:45AM ; [facility] Not sexually active has never been 10/03 Last Documented On 6 11:39AM ; [facility] Playing sports poms 07/27/2016 Last Documented On 6 10:11AM ; [facility] Using seatbelts 06/12/2016 Last Documented On 6 10:40AM ; [facility] The racial background was unknown ethnic minority 05/25/2014 Last Documented On 4 11:45AM ; [facility] Child enrolled in day-care 03/01/2009 Last Documented On 9 6:26PM ; [facility] Lives with parents 03/01/2009 Last Documented On 9 6:26PM ; [facility] Procedures and Surgical History Includes: Procedures from 11/24/2023 through 11/24/2024 Procedures Code Diagnosis Performing Provider Service Location Service Date STREP TEST SCREENING (CLIA WAIVED) 97437 Headache, unspecified, Other fatigue, Otalgia, left ear, Acute pharyngitis, unspecified [facility] 02/18/2024 Last Documented On 4 4:43PM ; [facility] SARS-CO,SARS-COV-2, INFLUENZA A/B TEST (CLIA WAIVED) 41408 Acute cough [facility] Fc[facility] 02/18/2024 Last Documented On 4 4:43PM ; [facility] Medical History Includes: Medical History in patient's chart Description Last Updated LMP: 08/29/2017 11/19/2017 Last Documented On 8 12:36AM ; [facility] A recent examination by an ophthalmologi st 08/201605/15/2017 Last Documented On 7 11:45AM ; [facility] Blood pressure was not high 05/15/2017 Last Documented On 7 11:45AM ; [facility] No cardiac problems 05/15/2017 Last Documented On 7 11:45AM ; [facility] No exposure to tuberculosis 05/15/2017 Last Documented On 7 11:45AM ; [facility] No history of asthma 05/15/2017 Last Documented On 7 11:45AM ; [facility] No orthopedic problems 05/15/2017 Last Documented On 7 11:45AM ; [facility] No Surgery 05/15/2017 Last Documented On 7 11:45AM ; [facility] No physical trauma 07/27/2016 Last Documented On 6 10:11AM ; [facility] No physical trauma while playing a sport 07/27/2016 Last Documented On 6 10:11AM ; [facility] 0 05/30/2016 Last Documented On 6 2:29PM ; [facility] No other medical history reported Signs of Insulin Resistance 05/25/2014 Last Documented On 4 11:45AM ; [facility] No recent severe illness or injury 05/25 Last Documented On 4 11:45AM ; [facility] Currently wearing eyeglasses 05/25/2014 Last Documented On 4 11:45AM ; [facility] No hearing problems 05/25/2014 Last Documented On 4 11:45AM ; [facility] No heart murmur 05/25/2014 Last Documented On 4 11:45AM ; [facility] No history of concussion 05/25/2014 Last Documented On 4 11:45AM ; [facility] No history of delayed milestones 014 Last Documented On 4 11:45AM ; [facility] No history of diabetes mellitus 05/25/20 14 Last Documented On 4 11:45AM ; [facility] No history of hematologic disorder 05/25 Last Documented On 4 11:45AM ; [facility] No history of sickle cell abnormality Last Documented On 4 11:45AM ; [facility] No loss of function of one of paired org ans 05/25/2014 Last Documented On 4 11:45AM ; [facility] No previous hospitalizations 05/25/2014 Last Documented On 4 11:45AM ; [facility] No trauma to the head 05/25/2014 Last Documented On 4 11:45AM ; [facility] Not born with congenital abnormalities 0 05/25/2014 Last Documented On 4 11:45AM ; [facility] Not carrying hemophilia A 05/25/2014 Last Documented On 4 11:45AM ; [facility] section 03/01/2009 Last Documented On 9 6:26PM ; [facility] No frequent sore throats 03/01/2009 Last Documented On 9 6:26PM ; [facility] No history of pneumonia 03/01/2009 Last Documented On 9 6:26PM ; [facility] Recurrent bacterial ear infections durin g childhood 03/01/2009 Last Documented On 9 6:26PM ; [facility] Family History Includes: Family History in patient's chart Description Last Updated Family history unchanged 09/01/2020 Last Documented On 0 7:48PM ; [facility] Family history of sudden ear ly deaths great grandpas- heart exploded, lung cancer 05/15/2017 Last Documented On 7 11:45AM ; [facility] Maternal history of blood pressure was h igh 02/19/2017 Last Documented On 7 6:47PM ; [facility] Maternal history of diabetes mellitus Last Documented On 7 6:47PM ; [facility] Maternal history of family h istory of sudden early deaths Maternal GF, paternal GF and Gr uncle all NE at 47 02/19/2017 Last Documented On 7 6:47PM ; [facility] Paternal history of arthritis 02/19/2017 Last Documented On 7 6:47PM ; [facility] Paternal history of family history of bi rth defects 02/19/2017 Last Documented On 7 6:47PM ; [facility] Paternal history of family h istory of cancer --FATHER has CML--diagnosed 11/201602/19/2017 Last Documented On 7 6:47PM ; [facility] Family history of cancer --FATHER has CM L--diagnosed 11/201611/24/2016 Last Documented On 7 4:43PM ; [facility] Discussion of family health status was jayy hale 06/12/2016 Last Documented On 6 10:40AM ; [facility] Family history of diabetes mellitus 05/15 Last Documented On 4 11:45AM ; [facility] Family history of arthritis 03/01/2009 Last Documented On 9 6:26PM ; [facility] Family history of defects 03/01/20 09 Last Documented On 9 6:26PM ; [facility] Family history of blood pressure was hig h 03/01/2009 Last Documented On 9 6:26PM ; [facility] No bleeding problems 03/01/2009 Last Documented On 9 6:26PM ; [facility] No family history of convulsions 009 Last Documented On 9 6:26PM ; [facility] No family history of stroke syndrome Last Documented On 9 6:26PM ; [facility] Review of Systems Review of Systems not supported for this document type No Review of Systems Recorded Mental Status Description Oriented to time, place, and person Functional Status No Functional Status Recorded Physical Exam Physical Exam not supported for this document type No Physical Exam Recorded Immunizations Includes: Immunizations in patient's chart Vaccine Dose # Date Site Reaction(s) Status Source HPV (Gardasil 9) 1 05/15/2017 Right Arm Series Complete (Administered) [facility] Last Documented On 7 11:21AM ; [facility] HPV (Gardasil 9) 2 11/19/2017 Left Arm Series Comp lete (Reported) Patient Last Documented On 8 9:39AM ; [facility] Meningococcal ACYW-135 (Menactra) 1 05/15/2017 Left Arm Complete (Administered) [facility] Last Documented On 7 11:21AM ; [facility] Tdap (Boostrix) 1 05/15/2017 Left Arm Complete (Ad ministered) [facility] Last Documented On 7 11:21AM ; [facility] Allergies Includes: Active, inactive, and resolved Allergies No Known Allergies Encounters Includes: Encounters from 11/24/2023 through 11/24/2024 Encounter Provider Location Date Check-In Time Check-Out Time Diagnosis COVID SICK VISIT- NEW PATIENT ALANNA CRUZAIR [employer] SAL[employer] ASSOCIATE-C [facility] 02/18/20 24 11/19/2017 2:45PM 3:59PM Assessment of Cough,Otitis Media Left Ear,Pharyngiti s Acute Insurance Includes: Active Insurance Policies Plan Name Member ID Group # Subscriber Relationship Effect dayana Dates 1 - [facility] [id number] LILIA STOUT Child Clinical Notes Includes: Signed Clinical Notes starting from 11/03/2022 * Progress note Date Encounter Last Documented by 02/18/2024 COVID SICK VISIT- NEW PATIENT [facility] documented on 02/18/2024; 4:03 PM, ALANNA MANJOSE ANTONIO CLEMENTP-C; [facility] Chief Complaint The Chief Complaint is: PT C/O FEELING FEVERISH, COUGH, SOB, FATIGUE, MUSCLE/BODY ACHES, FAJARDO, ST, RUNNY NOSE, NAUSEA, DIARRHEA, EYES WATERY AND DRAINAGE. SX STARTED YESTERDAY AND WORSE TODAY. History of Present Illness PAO STOUT is a 23 year old female. - Allergy list reviewed - Medication list reviewed - Feeling poorly (malaise) - No fever - Headache - No eye symptoms - Earache in left ear - Nasal discharge - Postnasal drip - Nasal passage blockage (stuffiness) - Sore throat - No chest pain or discomfort - No chest tightness or heavy pressure - Feeling congested in the chest - Cough - No dyspnea - No wheezing - Normal appetite - No nausea - No vomiting - No abdominal pain - No diarrhea - No myalgia - No taste decreased Pao is here with congestion, headache, sore throat, cough, ear pain, and diarrhea- started 2 days ago. Social History Tobacco use: Current smoker. Review Of Systems Systemic: No fever. Head: Headache. Otolaryngeal: Earache and nasal discharge. No sore throat. Cardiovascular: No chest pain or discomfort. Pulmonary: No dyspnea. Cough. No wheezing. Gastrointestinal: No vomiting, no abdominal pain, and no diarrhea. Musculoskeletal: Muscle aches. Neurological: No Loss of taste or smell. Skin: No skin symptoms. Physical Findings - Vitals taken 02/18/2024 03:41 pm Pulse Rate-Sitting 66 bpm Respiration Rate 21 per min Temp-Oral 98.9 F Height 62 in Weight 112 lbs 12.8 oz Body Mass Index 20.6 kg/m2 Body Surface Area 1.5 m2 Oxygen Saturation 99 % General Appearance: - Awake. - Alert. - Well developed. - Well nourished. - Well hydrated. - In no acute distress. Eyes: General/bilateral: Pupils: - PERRLA. Ears: Right Ear: External Auditory Canal: - Normal. Tympanic Membrane: - Serous exudate behind tympanic membrane. - Normal. - Not erythematous. Left Ear: External Auditory Canal: - Normal. Tympanic Membrane: - Examined. - Bulging tympanic membrane. - Erythematous. - Serous exudate behind tympanic membrane. Nose: General/bilateral: Discharge: - No nasal discharge. Sinus Tenderness: - No sinus tenderness. Pharynx: Oropharynx: - Tonsils showed no abnormalities. - Tonsils were not erythematous. - Tonsils were not enlarged. - Tonsils showed no exudate. Lymph Nodes: - Normal. Lungs: - No wheezing was heard. - No rhonchi were heard. - No rales/crackles were heard. Cardiovascular: Heart Rate And Rhythm: - Normal. Murmurs: - No murmurs were heard. Abdomen: Auscultation: - Bowel sounds were normal. Palpation: - Abdomen was soft. - Abdominal non-tender. - No direct tenderness in the abdomen. Neurological: - Oriented to time, place, and person. Gait And Stance: - Normal. Tests - Test: Group A strep Report Date: 02/18/2024 Rapid Strep NEG Normal LOT # AND EXP. DATE [id number] 08/15/26 Normal INT. QC ACCEPTABLE? YES Normal - Test: SARS COVID-19 FLU A & B Report Date: 02/18/2024 COVID NEG Normal INFLUENZA A NEG B INFLUENZA B NEG Normal INT. QC ACCEPTABLE? YES Normal LOT # & EXP. DATE [id number] 10/02/24 Normal Assessment - Cough [R05.9 - Cough, unspecified] - Otitis media of the left ear [H66.92 - Otitis media, unspecified, left ear] - Acute pharyngitis [J02.9 - Acute pharyngitis, unspecified] Plan StartCited - Acute pharyngitis, unspecified In office procedures/*[facility]: Rapid Strep Test EndCited StartCited - Cough, unspecified In office procedures/*[facility]: SARS COVID-19 + flu A & B test EndCited StartCited - Otitis media, unspecified, left ear Amoxicillin-Pot Clavulanate 875-125 MG tablet One tablet twice a day, 10 days, 0 refills EndCited Stay well hydrated and get plenty of rest. Alternate tylenol/ibuprofen for fever/muscle body aches. Can take OTC medications for symptoms. If symptoms worsen or do not improve call/return to clinic. Practice Management Use of tobacco assessment performed.
--- OUTSIDE RECORDS SUMMARY | 2024-11-24 16:40 | XMS_ITS ---
Care Plan - [facility] Created on: November 24, 2024 SOUMYA STOUT : 2000 Sex: Female Author Organization [facility] Address [address] [place] [address] Phone Care Team Providers Care Cheese Specialist Name Role Phone DAY GOMEZ DO Unavailable [phone]
--- OUTSIDE RECORDS SUMMARY | 2024-11-24 16:40 | XMS_ITS | Clinical Summary ---
Author Organization [facility] Address [address] [place] [address] Phone Care Team Providers Care Tar Man Name Role Phone DAY GOMEZ DO Unavailable [phone] Reason for Visit and Chief Complaint The Chief Complaint is: loss of taste/smell and headache Problems Includes: Problems addressed during this encounter and other active Problems All Visits Onset Date Resolved Date Provider Condition S tatus Asthma 05/25/2014 LISA Pedro PA-C Active Last Documented On 05/15/2017 11:44AM ; [facility] Note: Worse as a child--will occ get veterinary microbiologist upy cough that requires neb treatments. Plan of Treatment - Return to the clinic if condition worsens or new symptoms arise - Last Documented On 09/01/2020 7:48PM ; [facility] - Patient will call for appointment as needed - Last Documented On 09/01/2020 7:48PM ; [facility] Instructions to patient Instructions for patient Last Documented On 0 7:47PM ; [facility] Assessments Includes: Assessments from this encounter Findings - COVID-19 infection - Last Documented On 09/01/2020 7:48PM ; [facility] Instructions Includes: Instructions from this encounter Instructions to patient Instructions for patient Last Documented On 0 7:47PM ; [facility] Medical Equipment - Implanted Devices Includes: Current Devices No Medical Equipment Recorded Medications Includes: Medications discussed during this encounter and other current Medications Current Medications (continue as prescribed) Amoxicillin-Pot Clavulanate 875-125 MG Oral Tablet 02/18/2024 Provider: ALANNA N SINCLAI R ACCESS SERVICES ASSISTANT-C Diagnosis: Otitis media, unspecified, left ear One tablet twice a day Last Documented On 4 4:10PM By Alanna CLEMENTP-C ; [facility] Paxil 20MG Oral Tablet 11/19/2017 Provider: JAVON HANCOCK MD Diagnosis: Anxiety disorder , unspecified One tablet daily Last Documented On 8 11:17PM By SELENA HANCOCK MD ; [facility] Lo Loestrin Fe 1 MG-10 MCG /10 MCG Oral Tablet 03/13/2017 Provider: SELENA Potts Diagnosis: Dysmenorrhea, un specified Take one daily at the same t bernardo each day. Last Documented On 7 5:02PM By SELENA HANCOCK MD ; [facility] Medications Administered Includes: Administered Medications from this encounter No Administered Medications Recorded Vital Signs Includes: Vital Signs from this encounter Vital Name 09/01/2020 05:55P Pulse Rate-Sitting (bpm) 96 Temp-Oral (F) 98.8 Oxygen Saturation (%) 96 Last Documented: On 09/01/2020 5:55PM ; [facility] Results Includes: Results discussed during this encounter Rapid COVID Test [facility] Ordered by JUAN ASHFORD [facility] on Collected: Reported: 09/01/2020 18:09 Last Documented On 0 6:09PM ; [facility] Reviewed on 09/01/2020; All test results are final unless otherwise noted. Rapid COVId pos A (Abnormal) Last Documented On 0 6:09PM ; [facility] Int. QC Acceptable yes N (Normal) Last Documented On 0 6:09PM ; [facility] Lot # and Exp. Date [id number] N (Normal) Last Documented On 0 6:09PM ; [facility] History of Present Illness Includes: History of Present Illness from this encounter JERI STOUT is a 19 year old female. - Allergy list reviewed - Medication reconciliation performed - Fever - Chills - Duration of symptoms - Previously well - Headache associated with head congestion - No sinus pain - No sinus pressure - No swollen glands in the neck - No itching of the eyes - No discharge from the eyes - Nasal discharge - Postnasal drip - Nasal passage blockage (stuffiness) - No earache - The ears do not feel pressured - The ears do not feel full - No discharge from the ears - No sneezing - No sore throat - No itchy throat - No chest pain or discomfort - No palpitations - Cough - Not feeling congested in the chest - No dyspnea - No wheezing - No rash Pt to clinic for above symptoms plus loss of taste/smell x 4 days she was exposed to covid at school Social History Description Last Updated Playing sports poms 07/27/2016 Last Documented On 0 5:55PM ; [facility] The racial background was unknown ethnic minority 05/25/2014 Last Documented On 0 5:55PM ; [facility] Child enrolled in day-care 03/01/2009 Last Documented On 0 5:55PM ; [facility] Lives with parents 03/01/2009 Last Documented On 0 5:55PM ; [facility] Smoking Status Unknown Procedures and Surgical History Includes: Procedures from this encounter Procedures Code Diagnosis Performing Provider Service L ocation Service Date plan of care reviewed and agreed to by the patient Last Documented On 0 7:47PM ; [facility] review of medications documented 1160F Last Documented On 0 7:47PM ; [facility] Patient verbalizes understanding Last Documented On 0 7:47PM ; [facility] Increase fluids Last Documented On 0 7:47PM ; [facility] Clinical summary provided to patient Last Documented On 0 7:47PM ; [facility] Medical History Includes: Medical History addressed during this encounter Description Last Updated LMP: 08/29/2017 11/19/2017 Last Documented On 0 5:55PM ; [facility] A recent examination by an ophthalmologi st 08/201605/15/2017 Last Documented On 0 5:55PM ; [facility] 0 05/30/2016 Last Documented On 0 5:55PM ; [facility] Currently wearing eyeglasses 05/25/2014 Last Documented On 0 5:55PM ; [facility] section 03/01/2009 Last Documented On 0 5:55PM ; [facility] Recurrent bacterial ear infections durin g childhood 03/01/2009 Last Documented On 0 5:55PM ; [facility] Family History Includes: Family History addressed during this encounter Description Last Updated Family history unchanged 09/01/2020 Last Documented On 0 7:48PM ; [facility] Family history of sudden ear ly deaths great grandpas- heart exploded, lung cancer 05/15/2017 Last Documented On 0 5:55PM ; [facility] Maternal history of blood pressure was h igh 02/19/2017 Last Documented On 0 5:55PM ; [facility] Maternal history of diabetes mellitus Last Documented On 0 5:55PM ; [facility] Maternal history of family h istory of sudden early deaths Maternal GF, paternal GF and Gr uncle all MD at 47 02/19/2017 Last Documented On 0 5:55PM ; [facility] Paternal history of arthritis 02/19/2017 Last Documented On 0 5:55PM ; [facility] Paternal history of family history of bi rth defects 02/19/2017 Last Documented On 0 5:55PM ; [facility] Paternal history of family h istory of cancer --FATHER has CML--diagnosed 11/201602/19/2017 Last Documented On 0 5:55PM ; [facility] Family history of cancer --FATHER has CM L--diagnosed 11/201611/24/2016 Last Documented On 0 5:55PM ; [facility] Discussion of family health status was jayy hale 06/12/2016 Last Documented On 0 5:55PM ; [facility] Family history of diabetes mellitus 05/15 Last Documented On 0 5:55PM ; [facility] Family history of arthritis 03/01/2009 Last Documented On 0 5:55PM ; [facility] Family history of defects 03/01/20 09 Last Documented On 0 5:55PM ; [facility] Family history of blood pressure was hig h 03/01/2009 Last Documented On 0 5:55PM ; [facility] Review of Systems Includes: Review of Systems from this encounter Systemic: Fever and chills. Otolaryngeal: Nasal discharge and sore throat. Pulmonary: No dyspnea. Cough. Mental Status Includes: Mental Status from this encounter Description Oriented to time, place, and person Functional Status Includes: Functional Status from this encounter No Functional Status Recorded Physical Exam Includes: Physical Exam from this encounter Allergies Includes: Active Allergies No Known Allergies Encounters Encounter Provider Location Date Check-In Time Check-Out Time Diagnosis SICK VISIT JUAN ASHFORD ACCESS SERVICES ASSISTANT-BC [facility] 09/01/20 20 5:45PM 6:15PM Coronavirus Covid-19 Infection Insurance Includes: Active Insurance Policies Plan Name Member ID Group # Subscriber Relationship Effect dayana Dates 1 - [facility] [id number] LILIA STOUT Child Clinical Notes Includes: Clinical Notes from this encounter No Clinical Notes Recorded
--- OUTSIDE RECORDS SUMMARY | 2024-11-24 16:40 | XMS_ITS | Clinical Summary ---
Author Organization [facility] [[email or web address]] Address [address] [place] [address] Phone Care Team Providers Care Nuclear Equipment Sales Engineer Name Role Phone DAY GOMEZ DO Unavailable [phone] Reason for Visit and Chief Complaint The Chief Complaint is: PT C/O FEELING FEVERISH, COUGH, SOB, FATIGUE, MUSCLE/BODY ACHES, FAJARDO, ST, RUNNY NOSE, NAUSEA, DIARRHEA, EYES WATERY AND DRAINAGE. SX STARTED YESTERDAY AND WORSE TODAY Problems Includes: Problems addressed during this encounter and other active Problems All Visits Onset Date Resolved Date Provider Condition S tatus Asthma 05/25/2014 LISA Pedro PA-C Active Last Documented On 05/15/2017 11:44AM ; [facility] Note: Worse as a child--will occ get microsoft application developer upy cough that requires neb treatments. Plan of Treatment Stay well hydrated and get plenty of rest. Alternate tylenol/ibuprofen for fever/muscle body aches. Can take OTC medications for symptoms. If symptoms worsen or do not improve call/return to clinic. - Last Documented On 02/18/2024 4:03PM ; [facility] Assessments Includes: Assessments from this encounter Findings - Cough [R05.9 - Cough, unspecified] - Last Documented On 02/18/2024 4:03PM ; [facility] - Otitis media of the left ear [H66.92 - Otitis media, unspecified, left ear] - Last Documented On 02/18/2024 4:03PM ; [facility] - Acute pharyngitis [J02.9 - Acute pharyngitis, unspecified] - Last Documented On 02/18/2024 4:03PM ; [facility] Medical Equipment - Implanted Devices Includes: Current Devices No Medical Equipment Recorded Medications Includes: Medications discussed during this encounter and other current Medications New / Renewed during this visit ALANNA ALAMO on 02/18/2024 Amoxicillin-Pot Clavulanate 875-125 MG Oral Tablet Provider: ALANNA ALAMO 10 day supply: 20 tablet, 0 refills Diagnosis: Otitis media, unspecified, left ear One tablet twice a day Pharmacy: [facility] - [address] , [facility], [id number] - Last Documented On 4 4:10PM By Alanna ALAMO ; [facility] Current Medications (continue as prescribed) Paxil 20MG Oral Tablet 11/19/2017 Provider: JAVON HANCOCK MD Diagnosis: Anxiety disorder , unspecified One tablet daily Last Documented On 8 11:17PM By SELENA HANCOCK MD ; [facility] Lo Loestrin Fe 1 MG-10 MCG /10 MCG Oral Tablet 03/13/2017 Provider: SELENA Potts Diagnosis: Dysmenorrhea, un specified Take one daily at the same t bernardo each day. Last Documented On 7 5:02PM By SELENA HANCOCK MD ; [facility] Medications Administered Includes: Administered Medications from this encounter No Administered Medications Recorded Vital Signs Includes: Vital Signs from this encounter Vital Name 02/18/2024 03:41P Pulse Rate-Sitting (bpm) 66 Respiration Rate (breaths/min) 21 Temp-Oral (F) 98.9 Height (in) 62 Weight (lb) 112.8 Body Mass Index 20.6 Body Surface Area 1.5 Oxygen Saturation (%) 99 Last Documented: On 02/18/2024 3:42PM ; [facility] [[email or web address]] Results Includes: Results discussed during this encounter Group A strep [facility] Ordered by ALANNA ALAMO on 0 02/18/2024 Collected: Reported: 02/18/2024 15:51 Last Documented On 4 3:51PM ; [facility] Reviewed on 02/18/2024; All test results are final unless otherwise noted. Rapid Strep NEG N (Normal) Last Documented On 4 3:51PM ; [facility] LOT # AND EXP. DATE [id number] 08/15/26 N (Normal) Last Documented On 4 3:51PM ; [facility] INT. QC ACCEPTABLE? YES N (Normal) Last Documented On 4 3:51PM ; [facility] SARS COVID-19 FLU A & B [facility] Ordered by ALANNA MANCLAIR ALAMO on 0 02/18/2024 Collected: Reported: 02/18/2024 15:51 Last Documented On 4 3:51PM ; [facility] Reviewed on 02/18/2024; All test results are final unless otherwise noted. COVID NEG N (Normal) Last Documented On 4 3:51PM ; [facility] INFLUENZA A NEG (Negative) B (Better) Last Documented On 4 3:51PM ; [facility] INFLUENZA B NEG (negative) N (Normal) Last Documented On 4 3:51PM ; [facility] INT. QC ACCEPTABLE? YES N (Normal) Last Documented On 4 3:51PM ; [facility] LOT # & EXP. DATE [id number] 10/02/24 N (Normal) Last Documented On 4 3:51PM ; [facility] History of Present Illness Includes: History of Present Illness from this encounter HPI PAO STOUT is a 23 year old [...] diarrhea- started 2 days ago. Social History Description Last Updated Current smoker 02/18/2024 Last Documented On 4 4:03PM ; [facility] Smoking Status Unknown Procedures and Surgical History Includes: Procedures from this encounter Procedures Code Diagnosis Performing Provider Service L ocation Service Date SARS-CO,SARS-COV-2, INFLUENZA A/B TEST (CLIA WAIVED) 24471 Acute cough ALANNA MANCLAIR [facility] 02/18/2024 Last Documented On 4 4:43PM ; [facility] STREP TEST SCREENING (CLIA WAIVED) 22223 Headache, unspecified, Other fatigue, Otalgia, left ear, Acute pharyngitis, unspecified ALANNA MANCLAIR [facility] 02/18/2024 Last Documented On 4 4:43PM ; [facility] use of tobacco assessment performed 1000F Last Documented On 4 3:41PM ; [facility] Medical History Includes: Medical History addressed during this encounter No Medical History Recorded Family History Includes: Family History addressed during this encounter No Family History Recorded Review of Systems Includes: Review of Systems from this encounter Systemic: No fever. Head: Headache. Otolaryngeal: Earache and nasal discharge. No sore throat. Cardiovascular: No chest pain or discomfort. Pulmonary: No dyspnea. Cough. No wheezing. Gastrointestinal: No vomiting, no abdominal pain, and no diarrhea. Musculoskeletal: Muscle aches. Neurological: No Loss of taste or smell. Skin: No skin symptoms. Mental Status Includes: Mental Status from this encounter Description Oriented to time, place, and person Functional Status Includes: Functional Status from this encounter No Functional Status Recorded Physical Exam Includes: Physical Exam from this encounter Allergies Includes: Active Allergies No Known Allergies Encounters Encounter Provider Location Date Check-In Time Check-Out Time Diagnosis COVID SICK VISIT- NEW PATIENT ALANNA MARTINES [facility] 02/18/20 24 2:45PM 3:59PM Assessment of Cough,Otitis Media Left Ear,Pharyngiti s Acute Insurance Includes: Active Insurance Policies Plan Name Member ID Group # Subscriber Relationship Effect adyana Dates 1 - [facility] [id number] LILIA STOUT Child Clinical Notes Includes: Clinical Notes from this encounter * Progress note Date Encounter Last Documented by 02/18/2024 COVID SICK VISIT- NEW PATIENT Fatimah glass documented on 02/18/2024; 4:03 PM, ALANNA ALAMO; [facility] Chief Complaint The Chief [...] NEG Normal LOT # AND EXP. DATE [id number] 08/15/26 Normal INT. QC ACCEPTABLE? YES Normal - Test: SARS COVID-19 FLU A & B Report Date: 02/18/2024 COVID NEG Normal INFLUENZA A NEG B INFLUENZA B NEG Normal INT. QC ACCEPTABLE? YES Normal LOT # & EXP. DATE [id number] 10/02/24 Normal Assessment - Cough [R05.9 - [...]
--- OUTSIDE RECORDS SUMMARY | 2024-11-24 16:40 | XMS_ITS | Encounter Summary ---
Author Organization [facility] Address [address] [place] [address] Phone Care Team Providers Care Firer Powerhouse Name Role Phone Chas Chambers MD Primary Care Provider [phone] Reason for Visit * Reason Comments Medication Refill Encounter Details Date Type Department Care Team (Late st Contact Info) Description 11/13/2021 Refill [facility] [address] [place] [address] Chas Chambers MD [address] [place] [address] Medication Refill Social History Tobacco Use Types Packs/Day Years Used Date Smoking Tobacco: Never Smokeless Tobacco: Never Alcohol Use Standard Drinks/Week Comments Never 0 [...] on file Sexual Orientation Not on file COVID-19 Exposure Response Date Recorded In the last month, have you been in contact with someone who was confirmed or suspected to have Coronavirus / COVID-19? No / Unsure 11/10/2021 2:54 PM FILBERT GROWER documented as of this encounter Miscellaneous Notes * Telephone Encounter - Danielle Caba RN - 11/14/2021 12:52 PM CST Medication failed the protocol, provider to review and approve the medication order if appropriate. Requested Prescriptions Pending Prescriptions Disp Refills Xulane 150-35 MCG/24HR PATCH WEEKLY [Pharmacy Med Name: XULANE PATCHES] 3 Patch Si PATCH TO SKIN EVERY 7 DAYS FOR 3 WEEKS THEN OFF FOR 1 WEEK AND START OVER Not Delegated - Oral Contraceptives Protocol Failed - 11/13/2021 11:21 AM Failed - This refill cannot be delegated Passed - No positive test in the past 12 months or most recent test was negative Passed - Visit with relevant provider in past 12 months or upcoming 90 days Recent Visits Date Type Provider Dept 11/10/21 Office Visit Chas Chambers MD [facility] 10/13/21 Office Visit Julius Castellanos APRN, SCIENCE MANAGER [facility] 03/03/21 Office Visit Chas Chambers MD [facility] 12/28/20 Office Visit Jacquelyn Lara APRN, SCIENCE MANAGER [facility] [place] Showing recent visits within past 365 days and meeting all other requirements Future Appointments Date Type Provider Dept 12/08/21 Appointment Chas Chambers MD [facility] Showing future appointments within next 90 days and meeting all other requirements Passed - No active on record ERT GROWER documented in this encounter Plan of Treatment Not on file documented as of this encounter Visit Diagnoses Not on filedocumented in this encounter Additional Health Concerns Assessment Noted Time PHQ-9 Depression Total Score: 0 11/10/19 3:00 PM FILBERT GROWER documented as of this encounter Care Teams Firer Powerhouse Relationship Specialty Start Date End Date Chas Chambers MD PCP - General Family Medicine 08/05/20 documented as of this encounter
--- OUTSIDE RECORDS SUMMARY | 2024-11-24 16:40 | XMS_ITS | Clinical Summary ---
Author Organization [facility] Address [address] [place] [address] Phone Care Team Providers Care Weight Loss Consultant Name Role Phone DAY GOMEZ DO Unavailable [phone] Reason for Visit and Chief Complaint The Chief Complaint is: problem visit. pt states it morales to pee and is itchy, pt is having thick white discharge Problems Includes: Problems addressed during this encounter and other active Problems All Visits Onset Date Resolved Date Provider Condition S tatus Asthma 05/25/2014 LISA Pedro PA-C Active Last Documented On 05/15/2017 11:44AM ; [facility] Note: Worse as a child--will occ get microsoft bi developer upy cough that requires neb treatments. Plan of Treatment - Follow-up visit as needed with an office visit. - Last Documented On 10/11/2017 2:08PM ; [facility] Will culture urine and go from there. Take diflucan. Increase water, urinate often, cranberry juice/pills. Call sooner if symptoms worsen/persist beyond 3-4 days - Clinical summary provided to patient . Plan discussed and patient/parent/caregiver states understanding - Last Documented On 10/11/2017 2:08PM ; [facility] Assessments Includes: Assessments from this encounter Findings - Dysuria - Last Documented On 10/11/2017 2:08PM ; [facility] - Vaginitis - Last Documented On 10/11/2017 2:08PM ; [facility] Medical Equipment - Implanted Devices Includes: Current Devices No Medical Equipment Recorded Medications Includes: Medications discussed during this encounter and other current Medications New / Renewed during this visit LISA SANTANA PA-C on 10/11/2017 Diflucan 150MG Oral Tablet Provider: LISA Diaz 1 day supply: 2 tablet, 0 refills Diagnosis: Acute vaginitis Take one tablet PO x 1, Repe at in 4 days PRN. Pharmacy: [address], [address] - Last Documented On 11/19/2017 1:10PM By AARON Padron LPN ; [facility] Current Medications (continue as prescribed) Amoxicillin-Pot Clavulanate 875-125 MG Oral Tablet 02/18/2024 Provider: ALANNA ALAMO Diagnosis: Otitis media, unspecified, left ear One tablet twice a day Last Documented On 4 4:10PM By Alanna ALAMO ; [facility] Paxil 20MG Oral Tablet 11/19/2017 Provider: JAVON HANCOCK MD Diagnosis: Anxiety disorder , unspecified One tablet daily Last Documented On 8 11:17PM By SELENA HANCOCK MD ; [facility] Lo Loestrin Fe 1 MG-10 MCG /10 MCG Oral Tablet 03/13/2017 Provider: SELENA Potts Diagnosis: Dysmenorrhea, un specified Take one daily at the same t bernardo each day. Last Documented On 7 5:02PM By SELENA HANCOCK MD ; [facility] Medications Administered Includes: Administered Medications from this encounter No Administered Medications Recorded Vital Signs Includes: Vital Signs from this encounter Vital Name 10/11/2017 01:28P Blood Pressure Sitting L 116/78 Pulse Rate-Sitting (bpm) 98 Respiration Rate (breaths/min) 20 Temp-Oral (F) 97.8 Weight (lb) 141 Oxygen Saturation (%) 99 Last Documented: On 10/11/2017 1:33PM ; [facility] Results Includes: Results discussed during this encounter URINALYSIS [facility] Ordered by LISA SANTANA PA-C on 09/15 Collected: Reported: 10/11/2017 13:50 Last Documented On 7 1:50PM ; [facility] Reviewed by LISA SANTANA PA-C on 10/11/2017; All test results are final unless otherwise noted. Glucose neg (negaive) N (Normal) Last Documented On 7 1:50PM ; [facility] Bilirubin neg (Negative) N (Normal) Last Documented On 7 1:50PM ; [facility] Ketones neg (Negative) N (Normal) Last Documented On 7 1:50PM ; [facility] Sp [place] 1.025 (1.015-1.030) N (Normal) Last Documented On 7 1:50PM ; [facility] Blood trace-lysed (Negative) A (Abnormal) Last Documented On 7 1:50PM ; [facility] pH 5.5 (5-9) N (Normal) Last Documented On 7 1:50PM ; [facility] Protein neg (Negative) N (Normal) Last Documented On 7 1:50PM ; [facility] Urobilinogen 0.2 (Negative) N (Normal) Last Documented On 7 1:50PM ; [facility] Nitrite neg (Negative) N (Normal) Last Documented On 7 1:50PM ; [facility] Leukocytes small (Negative) A (Abnormal) Last Documented On 7 1:50PM ; [facility] History of Present Illness Includes: History of Present Illness from this encounter HPI SOUMYA STOUT is a 16 year old female. - Medication list reviewed. - No fever. - No nausea - No vomiting - No suprapubic pain - Foul-smelling urine - Dysuria --moreso when urine touches the outer vaginal area - Vulvar itching or burning - Date of last menstruation 08/16/2017 - Vaginal discharge which is white - No hematuria - No increase in urinary frequency - No urinary urgency - No flank pain Never been sexually active. Here with older sister. Sxs x few days Social History Description Last Updated Smoking status : Never smoker 11/19/2017 Last Documented On 7 1:27PM ; [facility] No tobacco use 05/15/2017 Last Documented On 7 1:27PM ; [facility] Not using alcohol 05/15/2017 Last Documented On 7 1:27PM ; [facility] Not using drugs 05/15/2017 Last Documented On 7 1:27PM ; [facility] Not sexually active has never been 10/03 Last Documented On 7 1:27PM ; [facility] Playing sports poms 07/27/2016 Last Documented On 7 1:27PM ; [facility] Using seatbelts 06/12/2016 Last Documented On 7 1:27PM ; [facility] The racial background was unknown ethnic minority 05/25/2014 Last Documented On 7 1:27PM ; [facility] Child enrolled in day-care 03/01/2009 Last Documented On 7 1:27PM ; [facility] Lives with parents 03/01/2009 Last Documented On 7 1:27PM ; [facility] Medical History Includes: Medical History addressed during this encounter Description Last Updated A recent examination by an ophthalmologi st 08/201605/15/2017 Last Documented On 7 1:27PM ; [facility] Blood pressure was not high 05/15/2017 Last Documented On 7 1:27PM ; [facility] No cardiac problems 05/15/2017 Last Documented On 7 1:27PM ; [facility] No exposure to tuberculosis 05/15/2017 Last Documented On 7 1:27PM ; [facility] No history of asthma 05/15/2017 Last Documented On 7 1:27PM ; [facility] No orthopedic problems 05/15/2017 Last Documented On 7 1:27PM ; [facility] No Surgery 05/15/2017 Last Documented On 7 1:27PM ; [facility] No physical trauma 07/27/2016 Last Documented On 7 1:27PM ; [facility] No physical trauma while playing a sport 07/27/2016 Last Documented On 7 1:27PM ; [facility] 0 05/30/2016 Last Documented On 7 1:27PM ; [facility] No other medical history reported Signs of Insulin Resistance 05/25/2014 Last Documented On 7 1:27PM ; [facility] No recent severe illness or injury 05/25 Last Documented On 7 1:27PM ; [facility] Currently wearing eyeglasses 05/25/2014 Last Documented On 7 1:27PM ; [facility] No hearing problems 05/25/2014 Last Documented On 7 1:27PM ; [facility] No heart murmur 05/25/2014 Last Documented On 7 1:27PM ; [facility] No history of concussion 05/25/2014 Last Documented On 7 1:27PM ; [facility] No history of delayed milestones 014 Last Documented On 7 1:27PM ; [facility] No history of diabetes mellitus 05/25/20 14 Last Documented On 7 1:27PM ; [facility] No history of hematologic disorder 05/25 Last Documented On 7 1:27PM ; [facility] No history of sickle cell abnormality Last Documented On 7 1:27PM ; [facility] No loss of function of one of paired org ans 05/25/2014 Last Documented On 7 1:27PM ; [facility] No previous hospitalizations 05/25/2014 Last Documented On 7 1:27PM ; [facility] No trauma to the head 05/25/2014 Last Documented On 7 1:27PM ; [facility] Not born with congenital abnormalities 0 05/25/2014 Last Documented On 7 1:27PM ; [facility] Not carrying hemophilia A 05/25/2014 Last Documented On 7 1:27PM ; [facility] section 03/01/2009 Last Documented On 7 1:27PM ; [facility] No frequent sore throats 03/01/2009 Last Documented On 7 1:27PM ; [facility] No history of pneumonia 03/01/2009 Last Documented On 7 1:27PM ; [facility] Recurrent bacterial ear infections durin g childhood 03/01/2009 Last Documented On 7 1:27PM ; [facility] Family History Includes: Family History addressed during this encounter Description Last Updated Family history of sudden ear ly deaths great grandpas- heart exploded, lung cancer 05/15/2017 Last Documented On 7 1:27PM ; [facility] Maternal history of blood pressure was h igh 02/19/2017 Last Documented On 7 1:27PM ; [facility] Maternal history of diabetes mellitus Last Documented On 7 1:27PM ; [facility] Maternal history of family h istory of sudden early deaths Maternal GF, paternal GF and Gr uncle all [place] at 47 02/19/2017 Last Documented On 7 1:27PM ; [facility] Paternal history of arthritis 02/19/2017 Last Documented On 7 1:27PM ; [facility] Paternal history of family history of bi rth defects 02/19/2017 Last Documented On 7 1:27PM ; [facility] Paternal history of family h istory of cancer --FATHER has CML--diagnosed 11/201602/19/2017 Last Documented On 7 1:27PM ; [facility] Family history of cancer --FATHER has CM L--diagnosed 11/201611/24/2016 Last Documented On 7 1:27PM ; [facility] Discussion of family health status was jayy hale 06/12/2016 Last Documented On 7 1:27PM ; [facility] Family history of diabetes mellitus 05/15 Last Documented On 7 1:27PM ; [facility] Family history of arthritis 03/01/2009 Last Documented On 7 1:27PM ; [facility] Family history of defects 03/01/20 09 Last Documented On 7 1:27PM ; [facility] Family history of blood pressure was hig h 03/01/2009 Last Documented On 7 1:27PM ; [facility] No bleeding problems 03/01/2009 Last Documented On 7 1:27PM ; [facility] No family history of convulsions 009 Last Documented On 7 1:27PM ; [facility] No family history of stroke syndrome Last Documented On 7 1:27PM ; [facility] Review of Systems Includes: Review of Systems from this encounter Systemic: No edema. Head: Headache. Cardiovascular: No chest pain or discomfort. Pulmonary: No shortness of breath. Neurological: No dizziness. Mental Status Includes: Mental Status from this encounter No Mental Status Recorded Functional Status Includes: Functional Status from this encounter No Functional Status Recorded Physical Exam Includes: Physical Exam from this encounter Allergies Includes: Active Allergies No Known Allergies Encounters Encounter Provider Location Date Check-In Time Check-Out Time Diagnosis PROBLEM VISIT LISA SANTANA PA-C [facility] 10/11/20 17 1:26PM 1:57PM Assessment of Pain During Urination (Dysuria),Vag initis Insurance Includes: Active Insurance Policies Plan Name Member ID Group # Subscriber Relationship Effect dayana Dates 1 - [facility] [id number] LILIA STOUT Child Clinical Notes Includes: Clinical Notes from this encounter No Clinical Notes Recorded
--- OUTSIDE RECORDS SUMMARY | 2024-11-24 16:41 | XMS_ITS ---
Care Plan - [facility] Created on: November 24, 2024 SOUMYA STOUT : 2000 Sex: Female Author Organization [facility] Address [address] [place] [address] Phone Care Team Providers Care Recruiting Administrator Name Role Phone DAY GOMEZ DO Unavailable [phone]
--- OUTSIDE RECORDS SUMMARY | 2024-11-24 16:41 | XMS_ITS ---
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 Plan of Treatment Findings Encounter Date Ordered patient will call fo r appointment as needed SICK VISIT with JUAN ASHFORD [facility]- 09/01/2020 Last Documented On 0 7:48PM ; [facility] Ordered return to the clinic if condition worsens or new symptoms arise SICK VISIT with JUAN ASHFORD [facility]- 09/01/2020 Last Documented On 0 7:48PM ; [facility] Ordered Clinical summary pro vided to patient . Plan discussed and patient/parent/caregiver states understanding PROBLEM VISIT with LISA SANTANA PA-C 10/11/2017 Last Documented On 7 2:08PM ; [facility] Ordered follow-up visit as n eeded with an office visit. Will culture urine and go from there. Take diflucan. Increase water, urinate often, cranberry juice/pills. Call sooner if symptoms worsen/persist beyond 3-4 days PROBLEM VISIT with LISA SANTANA PA-C 10/11/2017 Last Documented On 7 2:08PM ; [facility] Ordered follow-up visit as n eeded with an office visit. SCHOOL PHYSICAL with LISA SANTANA PA-C 05/15/2017 Last Documented On 7 11:45AM ; [facility] Ordered Clinical summary pro vided [...] 11/24/2016 Last Documented On 7 4:43PM ; [facility] Ordered follow-up visit as n eeded with an office visit. Discussed having brown discharge is normal with the Lo Loestrin. If the discharge persists can change control. Also stress can alter periods. Encourage to not skip any pills as spotting can occur with this. Call sooner if needed SICK VISIT with LISA SANTANA PA-C 11/24/2016 Last Documented On 7 4:43PM ; [facility] Ordered Clinical summary pro vided to patient . Plan discussed and patient/parent/caregiver states understanding SAME DAY SICK VISIT with LISA SANTANA PA-C 10/03/2016 Last Documented On 6 11:39AM ; [facility] Ordered follow-up visit as n eeded with an office visit. Push fluids, hot steamy showers, vicks. Hot tea with honey. OK to continue delsym and nyquil if needed. Labs today--if periods continue to be heavy will get pelvic ultrasound. Call sooner if symptoms worsen SAME DAY SICK VISIT with LISA SANTANA PA-C 10/03/2016 Last Documented On 6 11:39AM ; [facility] Ordered Clinical summary pro vided to patient . Plan discussed and patient/parent/caregiver states understanding MED CHECK with LISA SANTANA PA-C 09/06/2016 Last Documented On 6 4:55PM ; [facility] Ordered follow-up visit as n eeded with an office visit. Use the face wash, Rx cream then moisturize every night (CeraVe or Cetaphil are good). Continue your OCPs. Call sooner if needed MED CHECK with LISA SANTANA PA-C 09/06/2016 Last Documented On 6 4:55PM ; [facility] No ordered vaccines [facility] SPORTS PHYSICAL with SELENA HANCOCK MD 06/12/2016 Last Documented On 6 10:40AM ; [facility] Ordered Clinical summary pro vided to patient . Plan discussed and patient/parent/caregiver states understanding. Call in 3 months if you need refills. Discussed annual STD screening if you become sexually active CONSULTATION with LISA SANTANA PA-C 05/30/2016 Last Documented On 6 2:29PM ; [facility] Ordered return to the clinic if condition worsens or new symptoms arise CONSULTATION with LISA SANTANA PA-C 05/30/2016 Last Documented On 6 2:29PM ; [facility] Ordered patient will call fo r appointment as needed SPORTS PHYSICAL with SAMMI NOBLES [facility] 05/05/2015 Last Documented On 5 4:40PM ; [facility] Ordered return to the clinic if condition worsens or new symptoms arise SPORTS PHYSICAL with SAMMI NOBLES [facility] 05/05/2015 Last Documented On 5 4:40PM ; [facility] Ordered Clinical summary pro vided to patient . Plan discussed and patient/parent/caregiver states understanding SICK VISIT with LISA SANTANA PA-C 12/29/2014 Last Documented On 5 5:11PM ; [facility] Ordered follow-up visit as n eeded with an office visit. Push fluids, salt water gargles, throat lozenges. Change toothbrush after 48 hrs on antibiotic. Call if symptoms worsen/persist beyond 4 days SICK VISIT with LISA SANTANA PA-C 12/29/2014 Last Documented On 5 5:11PM ; [facility] Ordered Clinical summary pro vided to patient . Plan discussed and patient/parent/caregiver states understanding SICK VISIT with LISA SANTANA PA-C 12/02/2014 Last Documented On 5 8:44AM ; [facility] Ordered follow-up visit as n eeded with an office visit. Push fluids, hot steamy showers, vicks. Claritn/zyrtec or benadryl. Salt water gargles. Call if symptoms worsen/persist beyond 4 days SICK VISIT with LISA SANTANA PA-C 12/02/2014 Last Documented On 5 8:44AM ; [facility] Ordered Clinical summary pro vided to patient . Plan discussed and patient/parent/caregiver states understanding PROBLEM VISIT with LISA SANTANA PA-C 11/17/2014 Last Documented On 5 4:45PM ; [facility] Ordered follow-up visit as [...] 11/17/2014 Last Documented On 5 4:45PM ; [facility] Ordered Clinical summary pro vided to patient . Plan discussed and patient understands SICK VISIT with LISA SANTANA PA-C 12/09/2013 Last Documented On 4 3:08PM ; [facility] Ordered follow-up visit as n eeded with an office visit. Sudafed PE 4x/day with daily flonase for ears. Heating pad to ear for pain. Call if symptoms worsen/persist SICK VISIT with LISA SANTANA PA-C 12/09/2013 Last Documented On 4 3:08PM ; [facility] Ordered Clinical summary pro vided to patient . Plan discussed and patient understands PROBLEM VISIT with LISA SANTANA PA-C 07/25/2013 Last Documented On 3 3:02PM ; [facility] Ordered follow-up visit as n eeded with an office visit. Continue ibuprofen daily. Local heat. Daily multivitamin. Use rolling pin/tennis ball to roll muscles out. Call if symptoms worsen PROBLEM VISIT with LISA SANTANA PA-C 07/25/2013 Last Documented On 3 3:02PM ; [facility] Ordered Clinical summary pro vided to patient . Plan discussed and patient understands SICK VISIT with LISA SANTANA PA-C 12/17/2012 Last Documented On 3 4:39PM ; [facility] Ordered follow-up visit as n eeded with an office visit. Fluids, rest. [place] diet (toast, crackers, small sips of sprite/gatoraide) if stomach is bothersome. Call if symptoms worsen/persist SICK VISIT with LISA SANTANA PA-C 12/17/2012 Last Documented On 3 4:39PM ; [facility] Ordered fluids SICK VISIT with SELENA LAWLER MD 06/08/2010 Last Documented On 0 10:22PM ; [facility] Ordered return to the clinic if condition worsens or new symptoms arise SICK VISIT with SELENA HANCOCK MD 06/08/2010 Last Documented On 0 10:22PM ; [facility] Ordered follow-up visit as n eeded with an office visit.. Parent encouraged to push fluids and call if sx are not resolving in the next few days. Patient will be treated for likely yeast due to swimming a lot and recent abx SICK VISIT with ANDREY TINOCO PA-C 05/09/2010 Last Documented On 0 3:08PM ; [facility] Ordered fluids SICK VISIT with SELENA LAWLER MD 02/28/2010 Last Documented On 0 12:09PM ; [facility] Ordered return to the clinic if condition worsens or new symptoms arise SICK VISIT with SELENA HANCOCK MD 02/28/2010 Last Documented On 0 12:09PM ; [facility] Ordered follow-up visit as n [...] 02/25/2010 Last Documented On 0 10:05AM ; [facility] Ordered follow-up visit as n eeded with an office visit.. No school for 24 hours after starting abx. Patient to change toothbrush after 3 days. NSAIDs PRN. Parent to call if sx not improving within 48 hours SICK VISIT with ANDREY TINOCO PA-C 11/22/2009 Last Documented On 0 5:27PM ; [facility] Referrals To Diagnosis ENT Specialist [address] [place] [address] - ACUTE PHARYNGITIS Last Documented On 0 11:13AM ; [facility] ENT Specialist [address] [address] - STREP SORE THROAT Note: SHE SAW ENT AT [facility] DN THEY WANTED TO KNOW IF SHE HAD MORE ST, AND NO THEY SHOULD TAKE OUT HER TONSILS,...PLEASE SET UP APPT FOR THIS Last Documented On 0 9:26AM ; [facility] Ophthalmology [facility] [place] [address] - Optic papillitis, left eye Note: Children's please Last Documented On 8 1:41PM ; [facility] Instructions to patient Instructions for patient Last Documented On 0 7:47PM ; [facility] Maintain a healthy diet Last Documented On 7 10:42AM ; [facility] No Special Instructions or D evices Last Documented On 7 10:42AM ; [facility] Instructions for patient Last Documented On 5 4:00PM ; [facility] No Special Instructions or D evices Last Documented On 4 11:42AM ; [facility] Return to the clinic if cond ition worsens or new symptoms arise Last Documented On 1 12:01AM ; [facility] Return to the clinic if cond ition worsens or new symptoms arise Last Documented On 1 11:26PM ; [facility] Watch for signs/symptoms of infection Last Documented On 1 11:30PM ; [facility] Education and Decision Aids were provided during visit for: Discussed concerns Immunizat ions up to date. ~Recommend Gardasil series if not already completed Last Documented On 7 10:42AM ; [facility] Discussed use of seat belts Last Documented On 6 10:25AM ; [facility] Discussed sports safety Last Documented On 6 10:28AM ; [facility] Discussed safety practices U se neb w/ croupy cough; can use proair inhaler PRN--call 911 if no relief w/ symptoms Last Documented On 4 11:44AM ; [facility] Discussed concerns Getting i mmunizations at Sunday; recommended Gardasil series Last Documented On 4 11:44AM ; [facility] Assessments Includes: Assessments for all patient encounters Findings Encounter Date Acute pharyngitis COVID SICK VISIT- NE W PATIENT with ALANNA Fuchs MARTINES [employer]-C 02/18/2024 Last Documented On 4 4:03PM ; [facility] Assessment of cough COVID SICK VISIT- NE W PATIENT with ALANNA Fuchs MARTINES [employer]-C 02/18/2024 Last Documented On 4 4:03PM ; [facility] Otitis media of the left ear COVID SICK VISIT- NEW PATIENT with ALANNA Fuchs MARTINES [employer]-C 02/18/2024 Last Documented On 4 4:03PM ; [facility] COVID-19 infection SICK VISIT with JUAN OBANDO [employer]-BC 09/01/2020 Last Documented On 0 7:48PM ; [facility] Optic papillitis ? [Patient Encounter] with ALPA SANTANA PA-C 10/26/2017 Last Documented On 8 1:43PM ; [facility] Assessment of dysuria PROBLEM VISIT with LISA SANTANA PA-C 10/11/2017 Last Documented On 7 2:08PM ; [facility] Vaginitis PROBLEM VISIT with LISA WEN PA-C 10/11/2017 Last Documented On 7 2:08PM ; [facility] Patient is approved for part icipation in School, Physical Education, and Sports for 1 year SCHOOL PHYSICAL with LISA E SANTANA PA-C 05/15/2017 Last Documented On 7 11:45AM ; [facility] Routine adolescent history a nd physical (12 - 19 yrs) SCHOOL PHYSICAL with LISA E SANTANA PA-C 05/15/2017 Last Documented On 7 11:45AM ; [facility] Anxiety disorder NOS 3 WK CK-UP with SELENA MAYEN MD 03/13/2017 Last Documented On 7 5:06PM ; [facility] Headache syndromes 3 WK CK-UP with SELENA MCFARLAND MD 03/13/2017 Last Documented On 7 5:06PM ; [facility] Generalized anxiety disorder PROBLEM VISIT with SELENA HANCOCK MD 02/19/2017 Last Documented On 7 6:47PM ; [facility] Headache syndromes PROBLEM VISIT with SELENA BOUCHER MD 02/19/2017 Last Documented On 7 6:47PM ; [facility] WORRIED WELL SICK VISIT with LISA E SANTANA PA-C 11/24/2016 Last Documented On 7 4:43PM ; [facility] Acute sinusitis SAME DAY SICK VISIT with LISA E SANTANA PA-C 10/03/2016 Last Documented On 6 11:39AM ; [facility] Menorrhagia SAME DAY SICK VISIT with LISA E SANTANA PA-C 10/03/2016 Last Documented On 6 11:39AM ; [facility] Sore throat SAME DAY SICK VISIT with LISA E SANTANA PA-C 10/03/2016 Last Documented On 6 11:39AM ; [facility] Acne MED CHECK with LISA E SANTANA PA-C 09/06/2016 Last Documented On 6 4:55PM ; [facility] Menorrhagia MED CHECK with LISA E SANTANA PA-C 09/06/2016 Last Documented On 6 4:55PM ; [facility] Arthralgia of the left pelvis/hip/femur PROBLEM VISIT with ALANNA MARTINES [employer]TER-C 07/26/2016 Last Documented On 6 10:11AM ; [facility] Normal routine history and p hysical adolescent SPORTS PHYSICAL with SELENA HANCOCK MD 06/12/2016 Last Documented On 6 10:40AM ; [facility] Contraceptive surveillance CONSULTATION with TUCKER COATES-C 05/30/2016 Last Documented On 6 2:29PM ; [facility] Dysmenorrhea CONSULTATION with LISA COATES-C 05/30/2016 Last Documented On 6 2:29PM ; [facility] Pityriasis rosea SICK VISIT with SELENA SZYMANSKI MD 07/26/2015 Last Documented On 5 1:46PM ; [facility] Patient is approved for part icipation in School, Physical Education, and Sports for 1 year SPORTS PHYSICAL with SAMMI NOBLES PMHNP-BC [employer]TER-BC 05/05/2015 Last Documented On 5 4:40PM ; [facility] SCHOOL/SPORT PHYSICAL SPORTS PHYSICAL wi th SAMMI NOBLES PMHNP-BC [employer] C[employer]TER-BC 05/05/2015 Last Documented On 5 4:40PM ; [facility] Group A streptococcus: B hem olytic pharyngitis SICK VISIT with LISA COATES-C 12/29/2014 Last Documented On 5 5:11PM ; [facility] Acute pharyngitis VIRAL SICK VISIT with LISA COATES-C 12/02/2014 Last Documented On 5 8:44AM ; [facility] Arthralgia of ankle / foot PROBLEM VISIT with FERNANDO COATES-C 11/17/2014 Last Documented On 5 4:45PM ; [facility] Patient is approved for part icipation in School, Physical Education, and Sports for 1 year SCHOOL PHYSICAL with LISA COATES-C 05/25/2014 Last Documented On 4 11:45AM ; [facility] Normal routine history and p hysical well-child (6 - 12) SCHOOL PHYSICAL with LISA SANTANA PA-C 05/25/2014 Last Documented On 4 11:45AM ; [facility] Eustachian tube dysfunction SICK VISIT with ALPA SANTANA PA-C 12/09/2013 Last Documented On 4 3:08PM ; [facility] Acute bronchitis SICK VISIT with SELENA SZYMANSKI MD 09/05/2013 Last Documented On 3 3:26PM ; [facility] Backache SICK VISIT with SELENA LAWLER MD 09/05/2013 Last Documented On 3 3:26PM ; [facility] Muscle spasm PROBLEM VISIT with LISA WEN PA-C 07/25/2013 Last Documented On 3 3:02PM ; [facility] Thoracic spinal enthesopathy PROBLEM VISIT with SELENA HANCOCK MD 05/09/2013 Last Documented On 3 2:12PM ; [facility] Acute serous otitis media SICK VISIT with LISA SANTANA PA-C 12/17/2012 Last Documented On 3 4:39PM ; [facility] Eustachian tube dysfunction SICK VISIT with ALPA SANTANA PA-C 12/17/2012 Last Documented On 3 4:39PM ; [facility] Abnormal weight gain PROBLEM VISIT with SELENA HORTON MD 08/11/2011 Last Documented On 1 12:01AM ; [facility] Fatigue PROBLEM VISIT with SELENA MCFARLAND MD 08/11/2011 Last Documented On 1 12:01AM ; [facility] Primary insomnia PROBLEM VISIT with SELENA BROWNLEE MD 08/11/2011 Last Documented On 1 12:01AM ; [facility] Fatigue PROBLEM VISIT with SELENA MCFARLAND MD 02/17/2011 Last Documented On 1 11:33PM ; [facility] Folliculitis PROBLEM VISIT with SELENA MCFARLAND MD 02/17/2011 Last Documented On 1 11:33PM ; [facility] Conjunctivitis SICK VISIT with ANDREY Diaz 06/28/2010 Last Documented On 0 11:39AM ; [facility] Streptococcal sore throat SICK VISIT with SELENA HANCOCK MD 06/08/2010 Last Documented On 0 10:22PM ; [facility] Vaginitis SICK VISIT with ANDREY COATES- C 05/09/2010 Last Documented On 0 3:08PM ; [facility] Otitis media of the right ear SICK VISIT with DENNIS TINCOO PA-C 05/03/2010 Last Documented On 0 1:03PM ; [facility] Tonsillitis SICK VISIT with ANDREY TINOCO PA- C 05/03/2010 Last Documented On 0 1:03PM ; [facility] Acute pharyngitis SICK VISIT with SELENA ALFARO MD 02/28/2010 Last Documented On 0 12:09PM ; [facility] Acute pharyngitis SICK VISIT with ANDREY TINOCO P A-C 02/25/2010 Last Documented On 0 10:05AM ; [facility] Acute pharyngitis SICK VISIT with MANDY GARCIA PA-C 12/24/2009 Last Documented On 0 10:12AM ; [facility] A streptococcus: B hem olytic pharyngitis SICK VISIT with MANDY GARCIA PA-C 12/24/2009 Last Documented On 0 10:12AM ; [facility] Acute pharyngitis likey strep SICK VISIT with DENNIS TINOCO PA-C 11/22/2009 Last Documented On 0 5:27PM ; [facility] Instructions Includes: Instructions for all patient encounters Instructions to patient Instructions for patient Last Documented On 0 7:47PM ; [facility] Maintain a healthy diet Last Documented On 7 10:42AM ; [facility] No Special Instructions or D evices Last Documented On 7 10:42AM ; [facility] Instructions for patient Last Documented On 5 4:00PM ; [facility] No Special Instructions or D evices Last Documented On 4 11:42AM ; [facility] Return to the clinic if cond ition worsens or new symptoms arise Last Documented On 1 12:01AM ; [facility] Return to the clinic if cond ition worsens or new symptoms arise Last Documented On 1 11:26PM ; [facility] Watch for signs/symptoms of infection Last Documented On 1 11:30PM ; [facility] Education and Decision Aids were provided during visit for: Discussed concerns Immunizat ions up to date. ~Recommend Gardasil series if not already completed Last Documented On 7 10:42AM ; [facility] Discussed use of seat belts Last Documented On 6 10:25AM ; [facility] Discussed sports safety Last Documented On 6 10:28AM ; [facility] Discussed safety practices U se neb w/ croupy cough; can use proair inhaler PRN--call 911 if no relief w/ symptoms Last Documented On 4 11:44AM ; [facility] Discussed concerns Getting i mmunizations at Sunday; recommended Gardasil series Last Documented On 4 11:44AM ; [facility] Medical Equipment - Implanted Devices Includes: Current and historical Devices No Medical Equipment Recorded Medications Includes: Current and historical Medications Current Medications (continue as prescribed) Amoxicillin-Pot Clavulanate 875-125 MG Oral Tablet 02/18/2024 Provider: ALANNA ALAMO Diagnosis: Otitis media, unspecified, left ear One tablet twice a day Last Documented On 4 4:10PM By Alanna ALAMO ; [facility] Paxil 20MG Oral Tablet 11/19/2017 Provider: JAVON HANCOCK MD Diagnosis: Anxiety disorder , unspecified One tablet daily Last Documented On 8 11:17PM By SELENA HANCOCK MD ; [facility] Lo Loestrin Fe 1 MG-10 MCG /10 MCG Oral Tablet 03/13/2017 Provider: SELENA Potts Diagnosis: Dysmenorrhea, un specified Take one daily at the same t bernardo each day. Last Documented On 7 5:02PM By SELENA HANCOCK MD ; [facility] Past Medications on file Diflucan 150MG Oral Tablet 10/11/2017 - 11/19/2017 Provider: LISA SANTANA PA-C Diagnosis: Acute vaginitis Take one tablet PO x 1, Repeat in 4 days PRN. Last Documented On 11/19/2017 1:10PM By AARON Padron LPN ; [facility] Paxil 10MG Oral Tablet 03/18/2017 - 11/19/2017 Provider: SELENA HANCOCK MD Diagnosis: Anxiety disorder , unspecified TAKE 1 TABLET BY MOUTH EVERY DAY Last Documented On 11/19/2017 9:05AM By [email or web address] ; [facility] Paxil 20MG Oral Tablet 03/13/2017 - 11/19/2017 Provider: SELENA HANCOCK MD Diagnosis: Anxiety disorder , unspecified One tablet daily Last Documented On 8 11:17PM By SELENA HANCOCK MD ; [facility] Paxil 10MG Oral Tablet 02/19/2017 - 03/18/2017 Provider: SELENA HANCOCK MD Diagnosis: Anxiety disorder , unspecified One tablet daily Last Documented On 7 11:35PM By SELENA HANCOCK MD ; [facility] Amoxicillin 500 MG Capsule 10/03/2016 - 11/19/2017 Provider: LISA SANTANA PA-C Diagnosis: Other acute sinu sitis One tablet three times a day Last Documented On 11/19/2017 9:05AM By [email or web address] ; [facility] Lo Loestrin Fe 1 MG-10 MCG / 10 MCG Tablet 09/06/2016 - 03/13/2017 Provider: LISA SANTANA PA-C Diagnosis: Dysmenorrhea, unspecified Take one daily at the same time each day. Last Documented On 7 5:01PM By SELENA HANCOCK MD ; [facility] Retin-A Micro Pump 0.04 % Gel 09/06/2016 - 11/19/2017 Provider: LISA SANTANA PA-C Diagnosis: Other acne Apply pea sized amount to face q HS after washin g. Last Documented On 11/19/2017 9:06AM By [email or web address] ; [facility] Lo Loestrin Fe 1 MG-10 MCG / 10 MCG Tablet 05/30/2016 - 09/06/2016 Provider: LISA SANTANA PA-C Diagnosis: Dysmenorrhea, unspecified Take one daily at the same time each day. Last Documented On 6 4:26PM By LISA SANTANA PA-C ; [facility] Bactrim DS 800-160 MG Tablet 08/25/2015 - 11/19/2017 Sharon pardo: SELENA ALFARO MD Diagnosis: One tablet twice a day Last Documented On 11/19/2017 9:06AM By [email or web address] ; [facility] Amoxicillin 250 MG/5ML Suspension, when reconstituted 12/29/2014 - 11/19/2017 Provider: LISA SANTANA PA-C Diagnosis: STREP SORE THROA T 3 tsp PO once daily Last Documented On 11/19/2017 9:06AM By [email or web address] ; [facility] Zithromax 200 MG/5ML OR SUSR 09/05/2013 - 11/17/2014 Provider: SLEENA LAWLER MD Diagnosis: ACUTE BRONCHITIS 1 1/4 TSP QD FOR 7 DAYS Last Documented On 5 4:03PM By MANDY HARRIS MA ; [facility] Sulfamethoxazole-Trimethopri m 200-40 MG/5ML OR SUSP 07/03/2013 - 09/05/2013 Provider: LISA SANTANA PA-C Diagnosis: 1 and 1/2 tsp twice a day x 10 days Last Documented On 3 11:25AM By RUBINA EDWARDS ; [facility] Flonase 50 MCG/ACT NA SUSP 12/17/2012 - 09/05/2013 Provider: LISA SANTANA PA-C Diagnosis: DYSFUNCT EUSTACH COLEEN TUBE 2 sprays in each nostril onc e daily. Use generic Last Documented On 3 11:25AM By RUBINA EDWARDS ; [facility] Zithromax 200 MG/5ML OR SUSR 12/17/2012 - 09/05/2013 Provider: LISA SANTANA PA-C Diagnosis: AC SEROUS OTITIS MEDIA 2 and 1/2 tsp PO once daily x 5 days. Last Documented On 3 11:25AM By RUBINA EDWARDS ; [facility] cloNIDine HCl 0.1 MG OR TABS 08/11/2011 - 09/05/2013 Provider: SELENA HANCOCK MD Diagnosis: PERSISTENT INSOM LEATHA AT HS Last Documented On 3 11:25AM By RUBINA EDWARDS ; [facility] Tobrex 0.3% OP SOLN 06/28/2010 - 09/05/2013 Provider: ANDREY TINOCO PA-C Diagnosis: CONJUNCTIVITIS N OS 1-2 gtts every 4 hours for 7 days Last Documented On 3 11:25AM By RUBINA EDWARDS ; [facility] Amoxicillin 400 MG/5ML OR SUSR 06/08/2010 - 09/05/2013 Provider: SELENA HANCOCK MD Diagnosis: ACUTE PHARYNGITI S 2 TSP QD FOR 10 DAYS Last Documented On 3 11:25AM By RUBINA EDWARDS ; [facility] Diflucan 40 MG/ML OR SUSR 05/09/2010 - 09/05/2013 Prov ider: ANDREY TINOCO PA-C Diagnosis: VAGINITIS NOS 3 mL po once daily for 5 day Last Documented On 3 11:25AM By RUBINA EDWARDS ; [facility] Nystatin [id number] UNIT/GM EX CREA 05/09/2010 - 09/05/2013 Provider: ANDREY Diaz Diagnosis: VAGINITIS NOS apply to affected area tid-qid Last Documented On 3 11:25AM By RUBINA EDWARDS ; [facility] Augmentin 400-57 MG OR CHEW 05/03/2010 - 09/05/2013 Provider: ANDREY Diaz Diagnosis: OTITIS MEDIA NOS one BID x 10 days Last Documented On 3 11:25AM By RUBINA EDWARDS ; [facility] Ofloxacin 0.3% OP SOLN 05/03/2010 - 09/05/2013 Provide r: ANDREY TINOCO PA-C Diagnosis: OTITIS MEDIA NOS 5 gtts R ear once daily for 7 days Last Documented On 3 11:25AM By RUBINA EDWARDS ; [facility] Amoxicillin 400 MG/5ML OR SUSR 02/28/2010 - 06/08/2010 Provider: SELENA HANCOCK MD Diagnosis: ACUTE PHARYNGITI S 2 TSP QD FOR 10 DAYS Last Documented On 0 5:06PM By SELENA HANCOCK MD ; [facility] Zithromax 200 MG/5ML OR SUSR 02/25/2010 - 09/05/2013 Provider: ANDREY Diaz Diagnosis: ACUTE PHARYNGITI S one and 1/2 tsp QD x 5 days Last Documented On 3 11:25AM By RUBINA EDWARDS ; [facility] Zithromax 200 MG/5ML OR SUSR 12/24/2009 - 09/05/2013 Provider: MANDY MURRAY PA-C Diagnosis: STREP SORE THROA T 1.5 tsp PO daily for 5 days. Last Documented On 3 11:25AM By RUBINA EDWARDS ; [facility] Amoxicillin 400 MG/5ML OR SUSR 11/22/2009 - 02/28/2010 Provider: ANDREY Diaz Diagnosis: ACUTE PHARYNGITI S 1 and 1/2 tsp tid x 10 days Last Documented On 0 9:33AM By SELENA HNACOCK MD ; [facility] Medications Administered Includes: Administered Medications in patient's chart No Administered Medications Recorded Vital Signs Includes: Vital Signs from 11/24/2023 through 11/24/2024 Vital Name 02/18/2024 03:41P Pulse Rate-Sitting (bpm) 66 Respiration Rate (breaths/min) 21 Temp-Oral (F) 98.9 Height (in) 62 Weight (lb) 112.8 Body Mass Index 20.6 Body Surface Area 1.5 Oxygen Saturation (%) 99 Last Documented: On 02/18/2024 3:42PM ; [facility] Results Includes: Results from 11/24/2023 through 11/24/2024 Group A strep [facility] Ordered by ALANNA ALAMO on 0 02/18/2024 Collected: Reported: 02/18/2024 15:51 Last Documented On 4 3:51PM ; [facility] Reviewed on 02/18/2024; All test results are final unless otherwise noted. Rapid Strep NEG N (Normal) Last Documented On 4 3:51PM ; [facility] LOT # AND EXP. DATE [id number] 08/15/26 N (Normal) Last Documented On 4 3:51PM ; [facility] INT. QC ACCEPTABLE? YES N (Normal) Last Documented On 4 3:51PM ; [facility] SARS COVID-19 FLU A & B [facility] Ordered by ALANNA ALAMO on 0 02/18/2024 Collected: Reported: 02/18/2024 15:51 Last Documented On 4 3:51PM ; [facility] Reviewed on 02/18/2024; All test results are final unless otherwise noted. COVID NEG N (Normal) Last Documented On 4 3:51PM ; [facility] INFLUENZA A NEG (Negative) B (Better) Last Documented On 4 3:51PM ; [facility] INFLUENZA B NEG (negative) N (Normal) Last Documented On 4 3:51PM ; [facility] INT. QC ACCEPTABLE? YES N (Normal) Last Documented On 4 3:51PM ; [facility] LOT # & EXP. DATE [id number] 10/02/24 N (Normal) Last Documented On 4 3:51PM ; [facility] History of Present Illness History of Present Illness not supported for this document type No History of Present Illness Recorded Social History Description Last Updated Current smoker 02/18/2024 Last Documented On 4 4:03PM ; [facility] Smoking status : Never smoker 11/19/2017 Last Documented On 8 12:36AM ; [facility] No tobacco use 05/15/2017 Last Documented On 7 11:45AM ; [facility] Not using alcohol 05/15/2017 Last Documented On 7 11:45AM ; [facility] Not using drugs 05/15/2017 Last Documented On 7 11:45AM ; [facility] Not sexually active has never been 10/03 Last Documented On 6 11:39AM ; [facility] Playing sports poms 07/27/2016 Last Documented On 6 10:11AM ; [facility] Using seatbelts 06/12/2016 Last Documented On 6 10:40AM ; [facility] The racial background was unknown ethnic minority 05/25/2014 Last Documented On 4 11:45AM ; [facility] Child enrolled in day-care 03/01/2009 Last Documented On 9 6:26PM ; [facility] Lives with parents 03/01/2009 Last Documented On 9 6:26PM ; [facility] Procedures and Surgical History Includes: Procedures from 11/24/2023 through 11/24/2024 Procedures Code Diagnosis Performing Provider Service Location Service Date STREP TEST SCREENING (CLIA WAIVED) 31641 Headache, unspecified, Other fatigue, Otalgia, left ear, Acute pharyngitis, unspecified [facility] 02/18/2024 Last Documented On 4 4:43PM ; [facility] SARS-CO,SARS-COV-2, INFLUENZA A/B TEST (CLIA WAIVED) 33890 Acute cough [facility] 02/18/2024 Last Documented On 4 4:43PM ; [facility] Medical History Includes: Medical History in patient's chart Description Last Updated LMP: 08/29/2017 11/19/2017 Last Documented On 8 12:36AM ; [facility] A recent examination by an ophthalmologi st 08/201605/15/2017 Last Documented On 7 11:45AM ; [facility] Blood pressure was not high 05/15/2017 Last Documented On 7 11:45AM ; [facility] No cardiac problems 05/15/2017 Last Documented On 7 11:45AM ; [facility] No exposure to tuberculosis 05/15/2017 Last Documented On 7 11:45AM ; [facility] No history of asthma 05/15/2017 Last Documented On 7 11:45AM ; [facility] No orthopedic problems 05/15/2017 Last Documented On 7 11:45AM ; [facility] No Surgery 05/15/2017 Last Documented On 7 11:45AM ; [facility] No physical trauma 07/27/2016 Last Documented On 6 10:11AM ; [facility] No physical trauma while playing a sport 07/27/2016 Last Documented On 6 10:11AM ; [facility] 0 05/30/2016 Last Documented On 6 2:29PM ; [facility] No other medical history reported Signs of Insulin Resistance 05/25/2014 Last Documented On 4 11:45AM ; [facility] No recent severe illness or injury 05/25 Last Documented On 4 11:45AM ; [facility] Currently wearing eyeglasses 05/25/2014 Last Documented On 4 11:45AM ; [facility] No hearing problems 05/25/2014 Last Documented On 4 11:45AM ; [facility] No heart murmur 05/25/2014 Last Documented On 4 11:45AM ; [facility] No history of concussion 05/25/2014 Last Documented On 4 11:45AM ; [facility] No history of delayed milestones 014 Last Documented On 4 11:45AM ; [facility] No history of diabetes mellitus 05/25/20 14 Last Documented On 4 11:45AM ; [facility] No history of hematologic disorder 05/25 Last Documented On 4 11:45AM ; [facility] No history of sickle cell abnormality Last Documented On 4 11:45AM ; [facility] No loss of function of one of paired org ans 05/25/2014 Last Documented On 4 11:45AM ; [facility] No previous hospitalizations 05/25/2014 Last Documented On 4 11:45AM ; [facility] No trauma to the head 05/25/2014 Last Documented On 4 11:45AM ; [facility] Not born with congenital abnormalities 0 05/25/2014 Last Documented On 4 11:45AM ; [facility] Not carrying hemophilia A 05/25/2014 Last Documented On 4 11:45AM ; [facility] section 03/01/2009 Last Documented On 9 6:26PM ; [facility] No frequent sore throats 03/01/2009 Last Documented On 9 6:26PM ; [facility] No history of pneumonia 03/01/2009 Last Documented On 9 6:26PM ; [facility] Recurrent bacterial ear infections durin g childhood 03/01/2009 Last Documented On 9 6:26PM ; [facility] Family History Includes: Family History in patient's chart Description Last Updated Family history unchanged 09/01/2020 Last Documented On 0 7:48PM ; [facility] Family history of sudden ear ly deaths great grandpas- heart exploded, lung cancer 05/15/2017 Last Documented On 7 11:45AM ; [facility] Maternal history of blood pressure was h igh 02/19/2017 Last Documented On 7 6:47PM ; [facility] Maternal history of diabetes mellitus Last Documented On 7 6:47PM ; [facility] Maternal history of family h istory of sudden early deaths Maternal GF, paternal GF and Gr uncle all [place] at 47 02/19/2017 Last Documented On 7 6:47PM ; [facility] Paternal history of arthritis 02/19/2017 Last Documented On 7 6:47PM ; [facility] Paternal history of family history of bi rth defects 02/19/2017 Last Documented On 7 6:47PM ; [facility] Paternal history of family h istory of cancer --FATHER has CML--diagnosed 11/201602/19/2017 Last Documented On 7 6:47PM ; [facility] Family history of cancer --FATHER has CM L--diagnosed 11/201611/24/2016 Last Documented On 7 4:43PM ; [facility] Discussion of family health status was jayy hale 06/12/2016 Last Documented On 6 10:40AM ; [facility] Family history of diabetes mellitus 05/15 Last Documented On 4 11:45AM ; [facility] Family history of arthritis 03/01/2009 Last Documented On 9 6:26PM ; [facility] Family history of defects 03/01/20 09 Last Documented On 9 6:26PM ; [facility] Family history of blood pressure was hig h 03/01/2009 Last Documented On 9 6:26PM ; [facility] No bleeding problems 03/01/2009 Last Documented On 9 6:26PM ; [facility] No family history of convulsions 009 Last Documented On 9 6:26PM ; [facility] No family history of stroke syndrome Last Documented On 9 6:26PM ; [facility] Review of Systems Review [...] 1 05/15/2017 Right Arm Series Complete (Administered) [facility] Last Documented On 7 11:21AM ; [facility] HPV (Gardasil 9) 2 11/19/2017 Left Arm Series Comp lete (Reported) Patient Last Documented On 8 9:39AM ; [facility] Meningococcal ACYW-135 (Menactra) 1 05/15/2017 Left Arm Complete (Administered) [facility] Last Documented On 7 11:21AM ; [facility] Tdap (Boostrix) 1 05/15/2017 Left Arm Complete (Ad ministered) [facility] Last Documented On 7 11:21AM ; [facility] Allergies Includes: Active, inactive, and resolved Allergies No Known Allergies Encounters Includes: Encounters from 11/24/2023 through 11/24/2024 Encounter Provider Location Date Check-In Time Check-Out Time Diagnosis COVID SICK VISIT- NEW PATIENT ALANNA CRUZAIR GORING CUTTER-C [facility] 02/18/20 24 11/19/2017 2:45PM 3:59PM Assessment of Cough,Otitis Media Left Ear,Pharyngiti s Acute Insurance Includes: Active Insurance Policies Plan Name Member ID Group # Subscriber Relationship Effect dayana Dates 1 - [facility] [id number] LILIA STOUT Child Clinical Notes Includes: Signed Clinical Notes starting from 11/03/2022 * Progress note Date Encounter Last Documented by 02/18/2024 COVID SICK VISIT- NEW PATIENT [place] st documented on 02/18/2024; 4:03 PM, ALANNA MANJOSE ANTONIO CLEMENTP-C; [facility] Chief Complaint The Chief [...] NEG Normal LOT # AND EXP. DATE [id number] 08/15/26 Normal INT. QC ACCEPTABLE? YES Normal - Test: SARS COVID-19 FLU A & B Report Date: 02/18/2024 COVID NEG Normal INFLUENZA A NEG B INFLUENZA B NEG Normal INT. QC ACCEPTABLE? YES Normal LOT # & EXP. DATE [id number] 10/02/24 Normal Assessment - Cough [R05.9 - [...]
--- OUTSIDE RECORDS SUMMARY | 2024-11-24 16:41 | XMS_ITS | Clinical Summary ---
Author Organization [facility] Address [address] [place] [address] Phone Care Team Providers Care Telephone Lines Repairer Name Role Phone DAY GOMEZ DO Unavailable [phone] Reason for Visit and Chief Complaint The Chief Complaint is: Pt. is here for immunization of gardasil. Pt. 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 Plan of Treatment Pending Tests Order Diagnosis Results Due Ordering P rovider Injections Immunization Injection #1 (for child 0-18) Encounter for immunization 11/19/17 SELENA HANCOCK MD Last Documented On 8 1:41PM ; [facility] In office procedures - Immunizations Gardasil (HPV) Encounter for immunization 12/03/17 SELENA HANCOCK MD Last Documented On 8 12:36AM ; [facility] Assessments Includes: Assessments from this encounter No Assessments Recorded Medical Equipment - Implanted Devices Includes: Current Devices No Medical Equipment Recorded Medications Includes: Medications discussed during this encounter and other current Medications Discontinued / Stopped on this date LISA SANTANA PA-C on 10/11/2017 Diflucan 150MG Oral Tablet Provider: Candido SANTANA PA-C Diagnosis: Acute vaginitis Last Documented On 11/19/2017 1:10PM By AARON Padron LPN ; [facility] Paxil 10MG Oral Tablet Provider: JAVON HANCOCK MD Diagnosis: Anxiety disorder , unspecified Last Documented On 11/19/2017 9:05AM By [email or web address] ; [facility] Amoxicillin 500 MG Capsule Provider: Candido SANTANA PA-C Diagnosis: Other acute sinu sitis Last Documented On 11/19/2017 9:05AM By [email or web address] ; [facility] Retin-A Micro Pump 0.04 % Gel Provider: LISA SANTANA PA-C Diagnosis: Other acne Last Documented On 11/19/2017 9:06AM By [email or web address] ; [facility] Bactrim DS 800-160 MG Tablet Provider: SELENA HANCOCK MD Diagnosis: Last Documented On 11/19/2017 9:06AM By [email or web address] ; [facility] Amoxicillin 250 MG/5ML Suspe nsion, when reconstituted Provider: LISA Diaz Diagnosis: STREP SORE THROA T Last Documented On 11/19/2017 9:06AM By [email or web address] ; [facility] Current Medications (continue as prescribed) Amoxicillin-Pot Clavulanate 875-125 MG Oral Tablet 02/18/2024 Provider: ALANNA ALAMO Diagnosis: Otitis media, unspecified, left ear One tablet twice a day Last Documented On 4 4:10PM By Alanna ALAMO ; [facility] Paxil 20MG Oral Tablet 11/19/2017 Provider: JAVON HANCOCK MD Diagnosis: Anxiety disorder , unspecified One tablet daily Last Documented On 8 11:17PM By SELENA HANCOCK MD ; [facility] Lo Loestrin Fe 1 MG-10 MCG /10 MCG Oral Tablet 03/13/2017 Provider: SELENA Potts Diagnosis: Dysmenorrhea, un specified Take one daily at the same t bernardo each day. Last Documented On 7 5:02PM By SELENA HANCOCK MD ; [facility] Medications Administered Includes: Administered Medications from this encounter No Administered Medications Recorded Vital Signs Includes: Vital Signs from this encounter Vital Name 11/19/2017 09:03A Blood Pressure Sitting R 98/72 BP Cuff Size Regular Pulse Rate-Sitting (bpm) 71 Pulse Rhythm Regular Respiration Rate (breaths/min) 18 Temp-Oral (F) 97.1 Weight (lb) 145 Last Documented: On 11/19/2017 9:10AM ; [facility] Results Includes: Results discussed during this encounter No Results Recorded For Specified Dates History of Present Illness Includes: History of Present Illness from this encounter HPI SOUMYA STOUT is a 16 year old female. - Medication list reviewed. - Feeling fine. Social History Description Last Updated Smoking status : Never smoker 11/19/2017 Last Documented On 8 12:36AM ; [facility] Playing sports poms 07/27/2016 Last Documented On 8 9:03AM ; [facility] The racial background was unknown ethnic minority 05/25/2014 Last Documented On 8 9:03AM ; [facility] Child enrolled in day-care 03/01/2009 Last Documented On 8 9:03AM ; [facility] Lives with parents 03/01/2009 Last Documented On 8 9:03AM ; [facility] Medical History Includes: Medical History addressed during this encounter Description Last Updated LMP: 08/29/2017 11/19/2017 Last Documented On 8 12:36AM ; [facility] A recent examination by an ophthalmologi st 08/201605/15/2017 Last Documented On 8 9:03AM ; [facility] 0 05/30/2016 Last Documented On 8 9:03AM ; [facility] Currently wearing eyeglasses 05/25/2014 Last Documented On 8 9:03AM ; [facility] section 03/01/2009 Last Documented On 8 9:03AM ; [facility] Recurrent bacterial ear infections durin g childhood 03/01/2009 Last Documented On 8 9:03AM ; [facility] Family History Includes: Family History addressed during this encounter Description Last Updated Family history of sudden ear ly deaths great grandpas- heart exploded, lung cancer 05/15/2017 Last Documented On 8 9:03AM ; [facility] Maternal history of blood pressure was h igh 02/19/2017 Last Documented On 8 9:03AM ; [facility] Maternal history of diabetes mellitus Last Documented On 8 9:03AM ; [facility] Maternal history of family h istory of sudden early deaths Maternal GF, paternal GF and Gr uncle all [place] at 47 02/19/2017 Last Documented On 8 9:03AM ; [facility] Paternal history of arthritis 02/19/2017 Last Documented On 8 9:03AM ; [facility] Paternal history of family history of bi rth defects 02/19/2017 Last Documented On 8 9:03AM ; [facility] Paternal history of family h istory of cancer --FATHER has CML--diagnosed 11/201602/19/2017 Last Documented On 8 9:03AM ; [facility] Family history of cancer --FATHER has CM L--diagnosed 11/201611/24/2016 Last Documented On 8 9:03AM ; [facility] Discussion of family health status was jayy hale 06/12/2016 Last Documented On 8 9:03AM ; [facility] Family history of diabetes mellitus 05/15 Last Documented On 8 9:03AM ; [facility] Family history of arthritis 03/01/2009 Last Documented On 8 9:03AM ; [facility] Family history of defects 03/01/20 09 Last Documented On 8 9:03AM ; [facility] Family history of blood pressure was hig h 03/01/2009 Last Documented On 8 9:03AM ; [facility] Review of Systems Includes: Review of Systems from this encounter Systemic: No edema. Head: No headache. Cardiovascular: No chest pain or discomfort. Pulmonary: No shortness of breath. Neurological: No dizziness. Mental Status Includes: Mental Status from this encounter No Mental Status Recorded Functional Status Includes: Functional Status from this encounter No Functional Status Recorded Physical Exam Includes: Physical Exam from this encounter Immunizations Includes: Immunizations addressed during this encounter Vaccine Dose # Date Site Reaction(s) Status Source HPV (Gardasil 9) 2 11/19/2017 Left Arm Se max Complete (Reported) Patient Last Documented On 8 9:39AM ; [facility] Allergies Includes: Active Allergies No Known Allergies Encounters Encounter Provider Location Date Check-In Time Check-Out Time Diagnosis INJECTION SELENA HANCOCK MD [facility] 8 8:54AM 9:38AM Insurance Includes: Active Insurance Policies Plan Name Member ID Group # Subscriber Relationship Effect dayana Dates 1 - [facility] [id number] LILIA STOUT Child Clinical Notes Includes: Clinical Notes from this encounter No Clinical Notes Recorded
--- OUTSIDE RECORDS SUMMARY | 2024-11-24 16:41 | XMS_ITS | Clinical Summary ---
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 Plan of Treatment - Return to the clinic if condition worsens or new symptoms arise - Last Documented On 09/01/2020 7:48PM ; [facility] - Patient will call for appointment as needed - Last Documented On 09/01/2020 7:48PM ; [facility] Instructions to patient Instructions for patient Last Documented On 0 7:47PM ; [facility] Assessments Includes: Assessments from this encounter Findings - COVID-19 infection - Last Documented On 09/01/2020 7:48PM ; [facility] Instructions Includes: Instructions from this encounter Instructions to patient Instructions for patient Last Documented On 0 7:47PM ; [facility] Medical Equipment - Implanted Devices Includes: Current Devices No Medical Equipment Recorded Medications Includes: Medications discussed during this encounter and other current Medications Current Medications (continue as prescribed) Amoxicillin-Pot Clavulanate 875-125 MG Oral Tablet 02/18/2024 Provider: ALANNA N SINCLAI R PAYROLL TECHNICIAN-C Diagnosis: Otitis media, unspecified, left ear One tablet twice a day Last Documented On 4 4:10PM By Alanna CLEMENTP-C ; [facility] Paxil 20MG Oral Tablet 11/19/2017 Provider: JAVON HANCOCK MD Diagnosis: Anxiety disorder , unspecified One tablet daily Last Documented On 8 11:17PM By SELENA HANCOCK MD ; [facility] Lo Loestrin Fe 1 MG-10 MCG /10 MCG Oral Tablet 03/13/2017 Provider: SELENA Potts Diagnosis: Dysmenorrhea, un specified Take one daily at the same t bernardo each day. Last Documented On 7 5:02PM By SELENA HANCOCK MD ; [facility] Medications Administered Includes: Administered Medications from this encounter No Administered Medications Recorded Vital Signs Includes: Vital Signs from this encounter Vital Name 09/01/2020 05:55P Pulse Rate-Sitting (bpm) 96 Temp-Oral (F) 98.8 Oxygen Saturation (%) 96 Last Documented: On 09/01/2020 5:55PM ; [facility] Results Includes: Results discussed during this encounter Rapid COVID Test [facility] Ordered by JUAN [facility] on Collected: Reported: 09/01/2020 18:09 Last Documented On 0 6:09PM ; [facility] Reviewed on 09/01/2020; All test results are final unless otherwise noted. Rapid COVId pos A (Abnormal) Last Documented On 0 6:09PM ; [facility] Int. QC Acceptable yes N (Normal) Last Documented On 0 6:09PM ; [facility] Lot # and Exp. Date [id number] N (Normal) Last Documented On 0 6:09PM ; [facility] History of Present Illness Includes: History of [...] 07/27/2016 Last Documented On 0 5:55PM ; [facility] The racial background was unknown ethnic minority 05/25/2014 Last Documented On 0 5:55PM ; [facility] Child enrolled in day-care 03/01/2009 Last Documented On 0 5:55PM ; [facility] Lives with parents 03/01/2009 Last Documented On 0 5:55PM ; [facility] Smoking Status Unknown Procedures and Surgical History Includes: Procedures from this encounter Procedures Code Diagnosis Performing Provider Service L ocation Service Date plan of care reviewed and agreed to by the patient Last Documented On 0 7:47PM ; [facility] review of medications documented 1160F Last Documented On 0 7:47PM ; [facility] Patient verbalizes understanding Last Documented On 0 7:47PM ; [facility] Increase fluids Last Documented On 0 7:47PM ; [facility] Clinical summary provided to patient Last Documented On 0 7:47PM ; [facility] Medical History Includes: Medical History addressed during this encounter Description Last Updated LMP: 08/29/2017 11/19/2017 Last Documented On 0 5:55PM ; [facility] A recent examination by an ophthalmologi st 08/201605/15/2017 Last Documented On 0 5:55PM ; [facility] 0 05/30/2016 Last Documented On 0 5:55PM ; [facility] Currently wearing eyeglasses 05/25/2014 Last Documented On 0 5:55PM ; [facility] section 03/01/2009 Last Documented On 0 5:55PM ; [facility] Recurrent bacterial ear infections durin g childhood 03/01/2009 Last Documented On 0 5:55PM ; [facility] Family History Includes: Family History addressed during this encounter Description Last Updated Family history unchanged 09/01/2020 Last Documented On 0 7:48PM ; [facility] Family history of sudden ear ly deaths great grandpas- heart exploded, lung cancer 05/15/2017 Last Documented On 0 5:55PM ; [facility] Maternal history of blood pressure was h igh 02/19/2017 Last Documented On 0 5:55PM ; [facility] Maternal history of diabetes mellitus Last Documented On 0 5:55PM ; [facility] Maternal history of family h istory of sudden early deaths Maternal GF, paternal GF and Gr uncle all [place] at 47 02/19/2017 Last Documented On 0 5:55PM ; [facility] Paternal history of arthritis 02/19/2017 Last Documented On 0 5:55PM ; [facility] Paternal history of family history of bi rth defects 02/19/2017 Last Documented On 0 5:55PM ; [facility] Paternal history of family h istory of cancer --FATHER has CML--diagnosed 11/201602/19/2017 Last Documented On 0 5:55PM ; [facility] Family history of cancer --FATHER has CM L--diagnosed 11/201611/24/2016 Last Documented On 0 5:55PM ; [facility] Discussion of family health status was jayy hale 06/12/2016 Last Documented On 0 5:55PM ; [facility] Family history of diabetes mellitus 05/15 Last Documented On 0 5:55PM ; [facility] Family history of arthritis 03/01/2009 Last Documented On 0 5:55PM ; [facility] Family history of defects 03/01/20 09 Last Documented On 0 5:55PM ; [facility] Family history of blood pressure was hig h 03/01/2009 Last Documented On 0 5:55PM ; [facility] Review of Systems Includes: Review [...] Check-Out Time Diagnosis SICK VISIT JUAN ASHFORD PAYROLL TECHNICIAN-BC [facility] 09/01/20 20 5:45PM 6:15PM Coronavirus Covid-19 Infection Insurance Includes: Active Insurance Policies Plan Name Member ID Group # Subscriber Relationship Effect dayana Dates 1 - [facility] [id number] LILIA STOUT Child Clinical Notes Includes: Clinical Notes from this encounter No Clinical Notes Recorded
--- OUTSIDE RECORDS SUMMARY | 2024-11-24 16:41 | XMS_ITS | Clinical Summary ---
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 Plan of Treatment Stay well hydrated and get plenty of rest. Alternate tylenol/ibuprofen for fever/muscle body aches. Can take OTC medications for symptoms. If symptoms worsen or do not improve call/return to clinic. - Last Documented On 02/18/2024 4:03PM ; [facility] Assessments Includes: Assessments from this encounter Findings - Cough [R05.9 - Cough, unspecified] - Last Documented On 02/18/2024 4:03PM ; [facility] - Otitis media of the left ear [H66.92 - Otitis media, unspecified, left ear] - Last Documented On 02/18/2024 4:03PM ; [facility] - Acute pharyngitis [J02.9 - Acute pharyngitis, unspecified] - Last Documented On 02/18/2024 4:03PM ; [facility] Medical Equipment - [...] ear One tablet twice a day Pharmacy: [facility] - [address] , [facility], [phone] - Last Documented On 4 4:10PM By Alanna ALAMO ; [facility] Current Medications (continue as prescribed) Paxil 20MG Oral Tablet 11/19/2017 Provider: JAVON HANCOCK MD Diagnosis: Anxiety disorder , unspecified One tablet daily Last Documented On 8 11:17PM By SELENA HANCOCK MD ; [facility] Lo Loestrin Fe 1 MG-10 MCG /10 MCG Oral Tablet 03/13/2017 Provider: SELENA Potts Diagnosis: Dysmenorrhea, un specified Take one daily at the same t bernardo each day. Last Documented On 7 5:02PM By SELENA HANCOCK MD ; [facility] Medications Administered Includes: Administered Medications from this encounter No Administered Medications Recorded Vital Signs Includes: Vital Signs from this encounter Vital Name 02/18/2024 03:41P Pulse Rate-Sitting (bpm) 66 Respiration Rate (breaths/min) 21 Temp-Oral (F) 98.9 Height (in) 62 Weight (lb) 112.8 Body Mass Index 20.6 Body Surface Area 1.5 Oxygen Saturation (%) 99 Last Documented: On 02/18/2024 3:42PM ; [facility] Results Includes: Results discussed during this encounter Group A strep [facility] Ordered by ALANNA ALAMO on 0 02/18/2024 Collected: Reported: 02/18/2024 15:51 Last Documented On 4 3:51PM ; [facility] Reviewed on 02/18/2024; All test results are final unless otherwise noted. Rapid Strep NEG N (Normal) Last Documented On 4 3:51PM ; [facility] LOT # AND EXP. DATE [id number] 08/15/26 N (Normal) Last Documented On 4 3:51PM ; [facility] INT. QC ACCEPTABLE? YES N (Normal) Last Documented On 4 3:51PM ; [facility] SARS COVID-19 FLU A & B [facility] Ordered by ALANNA MANCLAIR ALAMO on 0 02/18/2024 Collected: Reported: 02/18/2024 15:51 Last Documented On 4 3:51PM ; [facility] Reviewed on 02/18/2024; All test results are final unless otherwise noted. COVID NEG N (Normal) Last Documented On 4 3:51PM ; [facility] INFLUENZA A NEG (Negative) B (Better) Last Documented On 4 3:51PM ; [facility] INFLUENZA B NEG (negative) N (Normal) Last Documented On 4 3:51PM ; [facility] INT. QC ACCEPTABLE? YES N (Normal) Last Documented On 4 3:51PM ; [facility] LOT # & EXP. DATE [id number] 10/02/24 N (Normal) Last Documented On 4 3:51PM ; [facility] History of Present Illness Includes: History [...] 02/18/2024 Last Documented On 4 4:03PM ; [facility] Smoking Status Unknown Procedures and Surgical History Includes: Procedures from this encounter Procedures Code Diagnosis Performing Provider Service L ocation Service Date SARS-CO,SARS-COV-2, INFLUENZA A/B TEST (CLIA WAIVED) 15181 Acute cough ALANNA MANCLAIR [facility] 02/18/2024 Last Documented On 4 4:43PM ; [facility] STREP TEST SCREENING (CLIA WAIVED) 75068 Headache, unspecified, Other fatigue, Otalgia, left ear, Acute pharyngitis, unspecified ALANNA MANCLAIR [facility] 02/18/2024 Last Documented On 4 4:43PM ; [facility] use of tobacco assessment performed 1000F Last Documented On 4 3:41PM ; [facility] Medical History Includes: Medical History addressed [...] COVID SICK VISIT- NEW PATIENT ALANNA MARTINES [facility] 02/18/20 24 2:45PM 3:59PM Assessment of Cough,Otitis Media Left Ear,Pharyngiti s Acute Insurance Includes: Active Insurance Policies Plan Name Member ID Group # Subscriber Relationship Effect dayana Dates 1 - [facility] [id number] LILIA STOUT Child Clinical Notes Includes: Clinical Notes from this encounter * Progress note Date Encounter Last Documented by 02/18/2024 COVID SICK VISIT- NEW PATIENT Fatimah glass documented on 02/18/2024; 4:03 PM, ALANNA ALAMO; [facility] Chief Complaint The [...] NEG Normal LOT # AND EXP. DATE [id number] 08/15/26 Normal INT. QC ACCEPTABLE? YES Normal - Test: SARS COVID-19 FLU A & B Report Date: 02/18/2024 COVID NEG Normal INFLUENZA A NEG B INFLUENZA B NEG Normal INT. QC ACCEPTABLE? YES Normal LOT # & EXP. DATE [id number] 10/02/24 Normal Assessment - Cough [R05.9 - [...]
--- OUTSIDE RECORDS SUMMARY | 2024-11-24 16:41 | XMS_ITS | Clinical Summary ---
Author Organization [facility] Address [address] [place] [address] Phone Care Team Providers Care Fly Winder Name Role Phone DAY GOMEZ DO Unavailable [phone] Reason for Visit and Chief Complaint The Chief Complaint is: Per mom still having HAs and has been to 2 eye doctors and both said LT eyestill has some optic swelling--recommended her seeing eye doctor at [facility] Problems Includes: Problems addressed during this encounter and other active Problems All Visits Onset Date Resolved Date Provider Condition S tatus Asthma 05/25/2014 LISA Pedro PA-C Active Last Documented On 05/15/2017 11:44AM ; [facility] Note: 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 Plan of Treatment Referrals To Diagnosis Ophthalmology [facility] - [address] [place] [address] - Optic papillitis, left eye Note: Children's please Last Documented On 8 1:41PM ; [facility] Assessments Includes: Assessments from this encounter Findings - Optic papillitis ? - Last Documented On 10/26/2017 1:43PM ; [facility] Medical Equipment - Implanted Devices Includes: Current Devices No Medical Equipment Recorded Medications Includes: Medications discussed during this encounter and other current Medications Current Medications (continue as prescribed) Amoxicillin-Pot Clavulanate 875-125 MG Oral Tablet 02/18/2024 Provider: ALANNA CLEMENTP-C Diagnosis: Otitis media, unspecified, left ear One tablet twice a day Last Documented On 4 4:10PM By Alanna ALAMO ; [facility] Paxil 20MG Oral Tablet 11/19/2017 Provider: JAVON HANCOCK MD Diagnosis: Anxiety disorder , unspecified One tablet daily Last Documented On 8 11:17PM By SELENA HANCOCK MD ; [facility] Lo Loestrin Fe 1 MG-10 MCG /10 MCG Oral Tablet 03/13/2017 Provider: SELENA Potts Diagnosis: Dysmenorrhea, un specified Take one daily at the same t bernardo each day. Last Documented On 7 5:02PM By SELENA HANCOCK MD ; [facility] Medications Administered Includes: Administered [...] Last Documented On 8 1:43PM ; [facility] No tobacco use 05/15/2017 Last Documented On 8 1:43PM ; [facility] Not using alcohol 05/15/2017 Last Documented On 8 1:43PM ; [facility] Not using drugs 05/15/2017 Last Documented On 8 1:43PM ; [facility] Not sexually active has never been 10/03 Last Documented On 8 1:43PM ; [facility] Playing sports poms 07/27/2016 Last Documented On 8 1:43PM ; [facility] Using seatbelts 06/12/2016 Last Documented On 8 1:43PM ; [facility] The racial background was unknown ethnic minority 05/25/2014 Last Documented On 8 1:43PM ; [facility] Child enrolled in day-care 03/01/2009 Last Documented On 8 1:43PM ; [facility] Lives with parents 03/01/2009 Last Documented On 8 1:43PM ; [facility] Medical History Includes: Medical History addressed during this encounter Description Last Updated A recent examination by an ophthalmologi st 08/201605/15/2017 Last Documented On 8 1:43PM ; [facility] Blood pressure was not high 05/15/2017 Last Documented On 8 1:43PM ; [facility] No cardiac problems 05/15/2017 Last Documented On 8 1:43PM ; [facility] No exposure to tuberculosis 05/15/2017 Last Documented On 8 1:43PM ; [facility] No history of asthma 05/15/2017 Last Documented On 8 1:43PM ; [facility] No orthopedic problems 05/15/2017 Last Documented On 8 1:43PM ; [facility] No Surgery 05/15/2017 Last Documented On 8 1:43PM ; [facility] No physical trauma 07/27/2016 Last Documented On 8 1:43PM ; [facility] No physical trauma while playing a sport 07/27/2016 Last Documented On 8 1:43PM ; [facility] 0 05/30/2016 Last Documented On 8 1:43PM ; [facility] No other medical history reported Signs of Insulin Resistance 05/25/2014 Last Documented On 8 1:43PM ; [facility] No recent severe illness or injury 05/25 Last Documented On 8 1:43PM ; [facility] Currently wearing eyeglasses 05/25/2014 Last Documented On 8 1:43PM ; [facility] No hearing problems 05/25/2014 Last Documented On 8 1:43PM ; [facility] No heart murmur 05/25/2014 Last Documented On 8 1:43PM ; [facility] No history of concussion 05/25/2014 Last Documented On 8 1:43PM ; [facility] No history of delayed milestones 014 Last Documented On 8 1:43PM ; [facility] No history of diabetes mellitus 05/25/20 14 Last Documented On 8 1:43PM ; [facility] No history of hematologic disorder 05/25 Last Documented On 8 1:43PM ; [facility] No history of sickle cell abnormality Last Documented On 8 1:43PM ; [facility] No loss of function of one of paired org ans 05/25/2014 Last Documented On 8 1:43PM ; [facility] No previous hospitalizations 05/25/2014 Last Documented On 8 1:43PM ; [facility] No trauma to the head 05/25/2014 Last Documented On 8 1:43PM ; [facility] Not born with congenital abnormalities 0 05/25/2014 Last Documented On 8 1:43PM ; [facility] Not carrying hemophilia A 05/25/2014 Last Documented On 8 1:43PM ; [facility] section 03/01/2009 Last Documented On 8 1:43PM ; [facility] No frequent sore throats 03/01/2009 Last Documented On 8 1:43PM ; [facility] No history of pneumonia 03/01/2009 Last Documented On 8 1:43PM ; [facility] Recurrent bacterial ear infections durin g childhood 03/01/2009 Last Documented On 8 1:43PM ; [facility] Family History Includes: Family History addressed during this encounter Description Last Updated Family history of sudden ear ly deaths great grandpas- heart exploded, lung cancer 05/15/2017 Last Documented On 8 1:43PM ; [facility] Maternal history of blood pressure was h igh 02/19/2017 Last Documented On 8 1:43PM ; [facility] Maternal history of diabetes mellitus Last Documented On 8 1:43PM ; [facility] Maternal history of family h istory of sudden early deaths Maternal GF, paternal GF and Gr uncle all [place] at 47 02/19/2017 Last Documented On 8 1:43PM ; [facility] Paternal history of arthritis 02/19/2017 Last Documented On 8 1:43PM ; [facility] Paternal history of family history of bi rth defects 02/19/2017 Last Documented On 8 1:43PM ; [facility] Paternal history of family h istory of cancer --FATHER has CML--diagnosed 11/201602/19/2017 Last Documented On 8 1:43PM ; [facility] Family history of cancer --FATHER has CM L--diagnosed 11/201611/24/2016 Last Documented On 8 1:43PM ; [facility] Discussion of family health status was jayy hale 06/12/2016 Last Documented On 8 1:43PM ; [facility] Family history of diabetes mellitus 05/15 Last Documented On 8 1:43PM ; [facility] Family history of arthritis 03/01/2009 Last Documented On 8 1:43PM ; [facility] Family history of defects 03/01/20 09 Last Documented On 8 1:43PM ; [facility] Family history of blood pressure was hig h 03/01/2009 Last Documented On 8 1:43PM ; [facility] No bleeding problems 03/01/2009 Last Documented On 8 1:43PM ; [facility] No family history of convulsions 009 Last Documented On 8 1:43PM ; [facility] No family history of stroke syndrome Last Documented On 8 1:43PM ; [facility] Review of Systems Includes: Review of Systems [...] Subscriber Relationship Effect dayana Dates 1 - [facility] [id number] LILIA STOUT Child Clinical Notes Includes: Clinical Notes from this encounter No Clinical Notes Recorded
--- OUTSIDE RECORDS SUMMARY | 2024-11-24 16:41 | XMS_ITS | Clinical Summary ---
Author Organization [facility] Address [address] [place] [address] Phone Care Team Providers Care Enamel Buffer Name Role Phone DAY GOMEZ DO Unavailable [phone] Reason for Visit and Chief Complaint The Chief Complaint is: Pt. is here for immunization of gardasil. Pt. 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 Plan of Treatment Pending Tests Order Diagnosis Results Due Ordering P rovider Injections Immunization Injection #1 (for child 0-18) Encounter for immunization 11/19/17 SELENA HANCOCK MD Last Documented On 8 1:41PM ; [facility] In office procedures - Immunizations Gardasil (HPV) Encounter for immunization 12/03/17 SELENA HANCOCK MD Last Documented On 8 12:36AM ; [facility] Assessments Includes: Assessments from [...] 11/19/2017 1:10PM By AARON Padron LPN ; [facility] Paxil 10MG Oral Tablet Provider: JAVON HANCOCK MD Diagnosis: Anxiety disorder , unspecified Last Documented On 11/19/2017 9:05AM By [email or web address] ; [facility] Amoxicillin 500 MG Capsule Provider: Candido SANTANA PA-C Diagnosis: Other acute sinu sitis Last Documented On 11/19/2017 9:05AM By [email or web address] ; [facility] Retin-A Micro Pump 0.04 % Gel Provider: LISA SANTANA PA-C Diagnosis: Other acne Last Documented On 11/19/2017 9:06AM By [email or web address] ; [facility] Bactrim DS 800-160 MG Tablet Provider: SELENA HANCOCK MD Diagnosis: Last Documented On 11/19/2017 9:06AM By [email or web address] ; [facility] Amoxicillin 250 MG/5ML Suspe nsion, when reconstituted Provider: LISA Diaz Diagnosis: STREP SORE THROA T Last Documented On 11/19/2017 9:06AM By [email or web address] ; [facility] Current Medications (continue as prescribed) Amoxicillin-Pot Clavulanate 875-125 MG Oral Tablet 02/18/2024 Provider: ALANNA ALAMO Diagnosis: Otitis media, unspecified, left ear One tablet twice a day Last Documented On 4 4:10PM By Alanna ALAMO ; [facility] Paxil 20MG Oral Tablet 11/19/2017 Provider: JAVON HANCOCK MD Diagnosis: Anxiety disorder , unspecified One tablet daily Last Documented On 8 11:17PM By SELENA HANCOCK MD ; [facility] Lo Loestrin Fe 1 MG-10 MCG /10 MCG Oral Tablet 03/13/2017 Provider: SELENA Potts Diagnosis: Dysmenorrhea, un specified Take one daily at the same t bernardo each day. Last Documented On 7 5:02PM By SELENA HANCOCK MD ; [facility] Medications Administered Includes: Administered Medications from this encounter No Administered Medications Recorded Vital Signs Includes: Vital Signs from this encounter Vital Name 11/19/2017 09:03A Blood Pressure Sitting R 98/72 BP Cuff Size Regular Pulse Rate-Sitting (bpm) 71 Pulse Rhythm Regular Respiration Rate (breaths/min) 18 Temp-Oral (F) 97.1 Weight (lb) 145 Last Documented: On 11/19/2017 9:10AM ; [facility] Results Includes: Results discussed during this encounter No Results Recorded For Specified Dates History of Present Illness Includes: History of Present Illness from this encounter HPI SOUMYA STOUT is a 16 year old female. - Medication list reviewed. - Feeling fine. Social History Description Last Updated Smoking status : Never smoker 11/19/2017 Last Documented On 8 12:36AM ; [facility] Playing sports poms 07/27/2016 Last Documented On 8 9:03AM ; [facility] The racial background was unknown ethnic minority 05/25/2014 Last Documented On 8 9:03AM ; [facility] Child enrolled in day-care 03/01/2009 Last Documented On 8 9:03AM ; [facility] Lives with parents 03/01/2009 Last Documented On 8 9:03AM ; [facility] Medical History Includes: Medical History addressed during this encounter Description Last Updated LMP: 08/29/2017 11/19/2017 Last Documented On 8 12:36AM ; [facility] A recent examination by an ophthalmologi st 08/201605/15/2017 Last Documented On 8 9:03AM ; [facility] 0 05/30/2016 Last Documented On 8 9:03AM ; [facility] Currently wearing eyeglasses 05/25/2014 Last Documented On 8 9:03AM ; [facility] section 03/01/2009 Last Documented On 8 9:03AM ; [facility] Recurrent bacterial ear infections durin g childhood 03/01/2009 Last Documented On 8 9:03AM ; [facility] Family History Includes: Family History addressed during this encounter Description Last Updated Family history of sudden ear ly deaths great grandpas- heart exploded, lung cancer 05/15/2017 Last Documented On 8 9:03AM ; [facility] Maternal history of blood pressure was h igh 02/19/2017 Last Documented On 8 9:03AM ; [facility] Maternal history of diabetes mellitus Last Documented On 8 9:03AM ; [facility] Maternal history of family h istory of sudden early deaths Maternal GF, paternal GF and Gr uncle all [place] at 47 02/19/2017 Last Documented On 8 9:03AM ; [facility] Paternal history of arthritis 02/19/2017 Last Documented On 8 9:03AM ; [facility] Paternal history of family history of bi rth defects 02/19/2017 Last Documented On 8 9:03AM ; [facility] Paternal history of family h istory of cancer --FATHER has CML--diagnosed 11/201602/19/2017 Last Documented On 8 9:03AM ; [facility] Family history of cancer --FATHER has CM L--diagnosed 11/201611/24/2016 Last Documented On 8 9:03AM ; [facility] Discussion of family health status was jayy hale 06/12/2016 Last Documented On 8 9:03AM ; [facility] Family history of diabetes mellitus 05/15 Last Documented On 8 9:03AM ; [facility] Family history of arthritis 03/01/2009 Last Documented On 8 9:03AM ; [facility] Family history of defects 03/01/20 09 Last Documented On 8 9:03AM ; [facility] Family history of blood pressure was hig h 03/01/2009 Last Documented On 8 9:03AM ; [facility] Review of Systems Includes: Review of Systems [...] Patient Last Documented On 8 9:39AM ; [facility] Allergies Includes: Active Allergies No Known Allergies Encounters Encounter Provider Location Date Check-In Time Check-Out Time Diagnosis INJECTION SELENA HANCOCK MD [facility] 8 8:54AM 9:38AM Insurance Includes: Active Insurance Policies Plan Name Member ID Group # Subscriber Relationship Effect dayana Dates 1 - [facility] [id number] LILIA STOUT Child Clinical Notes Includes: Clinical Notes from this encounter No Clinical Notes Recorded
--- OUTSIDE RECORDS SUMMARY | 2024-11-24 16:41 | XMS_ITS | Clinical Summary ---
Author Organization [facility] Address [address] [place] [address] Phone Care Team Providers Care Mobile Application Developer Name Role Phone DAY GOMEZ DO Unavailable [phone] Reason for Visit and Chief Complaint The Chief Complaint is: problem visit. 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 Plan of Treatment - Follow-up visit as needed with an office visit. - Last Documented On 10/11/2017 2:08PM ; [facility] Will culture urine and go from there. Take diflucan. Increase water, urinate often, cranberry juice/pills. Call sooner if symptoms worsen/persist beyond 3-4 days - Clinical summary provided to patient . Plan discussed and patient/parent/caregiver states understanding - Last Documented On 10/11/2017 2:08PM ; [facility] Assessments Includes: Assessments from this encounter Findings - Dysuria - Last Documented On 10/11/2017 2:08PM ; [facility] - Vaginitis - Last Documented On 10/11/2017 2:08PM ; [facility] Medical Equipment - Implanted Devices Includes: Current [...] Repe at in 4 days PRN. Pharmacy: [address], [address] - Last Documented On 11/19/2017 1:10PM By AARON Padron LPN ; [facility] Current Medications (continue as prescribed) Amoxicillin-Pot Clavulanate 875-125 MG Oral Tablet 02/18/2024 Provider: ALANNA ALAMO Diagnosis: Otitis media, unspecified, left ear One tablet twice a day Last Documented On 4 4:10PM By Alanna ALAMO ; [facility] Paxil 20MG Oral Tablet 11/19/2017 Provider: JAVON HANCOCK MD Diagnosis: Anxiety disorder , unspecified One tablet daily Last Documented On 8 11:17PM By SELENA HANCOCK MD ; [facility] Lo Loestrin Fe 1 MG-10 MCG /10 MCG Oral Tablet 03/13/2017 Provider: SELENA Potts Diagnosis: Dysmenorrhea, un specified Take one daily at the same t bernardo each day. Last Documented On 7 5:02PM By SELENA HANCOCK MD ; [facility] Medications Administered Includes: Administered Medications from this encounter No Administered Medications Recorded Vital Signs Includes: Vital Signs from this encounter Vital Name 10/11/2017 01:28P Blood Pressure Sitting L 116/78 Pulse Rate-Sitting (bpm) 98 Respiration Rate (breaths/min) 20 Temp-Oral (F) 97.8 Weight (lb) 141 Oxygen Saturation (%) 99 Last Documented: On 10/11/2017 1:33PM ; [facility] Results Includes: Results discussed during this encounter URINALYSIS [facility] Ordered by LISA SANTANA PA-C on 09/15 Collected: Reported: 10/11/2017 13:50 Last Documented On 7 1:50PM ; [facility] Reviewed by LISA SANTANA PA-C on 10/11/2017; All test results are final unless otherwise noted. Glucose neg (negaive) N (Normal) Last Documented On 7 1:50PM ; [facility] Bilirubin neg (Negative) N (Normal) Last Documented On 7 1:50PM ; [facility] Ketones neg (Negative) N (Normal) Last Documented On 7 1:50PM ; [facility] Sp Ramer 1.025 (1.015-1.030) N (Normal) Last Documented On 7 1:50PM ; [facility] Blood trace-lysed (Negative) A (Abnormal) Last Documented On 7 1:50PM ; [facility] pH 5.5 (5-9) N (Normal) Last Documented On 7 1:50PM ; [facility] Protein neg (Negative) N (Normal) Last Documented On 7 1:50PM ; [facility] Urobilinogen 0.2 (Negative) N (Normal) Last Documented On 7 1:50PM ; [facility] Nitrite neg (Negative) N (Normal) Last Documented On 7 1:50PM ; [facility] Leukocytes small (Negative) A (Abnormal) Last Documented On 7 1:50PM ; [facility] History of Present Illness Includes: History [...] 11/19/2017 Last Documented On 7 1:27PM ; [facility] No tobacco use 05/15/2017 Last Documented On 7 1:27PM ; [facility] Not using alcohol 05/15/2017 Last Documented On 7 1:27PM ; [facility] Not using drugs 05/15/2017 Last Documented On 7 1:27PM ; [facility] Not sexually active has never been 10/03 Last Documented On 7 1:27PM ; [facility] Playing sports poms 07/27/2016 Last Documented On 7 1:27PM ; [facility] Using seatbelts 06/12/2016 Last Documented On 7 1:27PM ; [facility] The racial background was unknown ethnic minority 05/25/2014 Last Documented On 7 1:27PM ; [facility] Child enrolled in day-care 03/01/2009 Last Documented On 7 1:27PM ; [facility] Lives with parents 03/01/2009 Last Documented On 7 1:27PM ; [facility] Medical History Includes: Medical History addressed during this encounter Description Last Updated A recent examination by an ophthalmologi st 08/201605/15/2017 Last Documented On 7 1:27PM ; [facility] Blood pressure was not high 05/15/2017 Last Documented On 7 1:27PM ; [facility] No cardiac problems 05/15/2017 Last Documented On 7 1:27PM ; [facility] No exposure to tuberculosis 05/15/2017 Last Documented On 7 1:27PM ; [facility] No history of asthma 05/15/2017 Last Documented On 7 1:27PM ; [facility] No orthopedic problems 05/15/2017 Last Documented On 7 1:27PM ; [facility] No Surgery 05/15/2017 Last Documented On 7 1:27PM ; [facility] No physical trauma 07/27/2016 Last Documented On 7 1:27PM ; [facility] No physical trauma while playing a sport 07/27/2016 Last Documented On 7 1:27PM ; [facility] 0 05/30/2016 Last Documented On 7 1:27PM ; [facility] No other medical history reported Signs of Insulin Resistance 05/25/2014 Last Documented On 7 1:27PM ; [facility] No recent severe illness or injury 05/25 Last Documented On 7 1:27PM ; [facility] Currently wearing eyeglasses 05/25/2014 Last Documented On 7 1:27PM ; [facility] No hearing problems 05/25/2014 Last Documented On 7 1:27PM ; [facility] No heart murmur 05/25/2014 Last Documented On 7 1:27PM ; [facility] No history of concussion 05/25/2014 Last Documented On 7 1:27PM ; [facility] No history of delayed milestones 014 Last Documented On 7 1:27PM ; [facility] No history of diabetes mellitus 05/25/20 14 Last Documented On 7 1:27PM ; [facility] No history of hematologic disorder 05/25 Last Documented On 7 1:27PM ; [facility] No history of sickle cell abnormality Last Documented On 7 1:27PM ; [facility] No loss of function of one of paired org ans 05/25/2014 Last Documented On 7 1:27PM ; [facility] No previous hospitalizations 05/25/2014 Last Documented On 7 1:27PM ; [facility] No trauma to the head 05/25/2014 Last Documented On 7 1:27PM ; [facility] Not born with congenital abnormalities 0 05/25/2014 Last Documented On 7 1:27PM ; [facility] Not carrying hemophilia A 05/25/2014 Last Documented On 7 1:27PM ; [facility] section 03/01/2009 Last Documented On 7 1:27PM ; [facility] No frequent sore throats 03/01/2009 Last Documented On 7 1:27PM ; [facility] No history of pneumonia 03/01/2009 Last Documented On 7 1:27PM ; [facility] Recurrent bacterial ear infections durin g childhood 03/01/2009 Last Documented On 7 1:27PM ; [facility] Family History Includes: Family History addressed during this encounter Description Last Updated Family history of sudden ear ly deaths great grandpas- heart exploded, lung cancer 05/15/2017 Last Documented On 7 1:27PM ; [facility] Maternal history of blood pressure was h igh 02/19/2017 Last Documented On 7 1:27PM ; [facility] Maternal history of diabetes mellitus Last Documented On 7 1:27PM ; [facility] Maternal history of family h istory of sudden early deaths Maternal GF, paternal GF and Gr uncle all [place] at 47 02/19/2017 Last Documented On 7 1:27PM ; [facility] Paternal history of arthritis 02/19/2017 Last Documented On 7 1:27PM ; [facility] Paternal history of family history of bi rth defects 02/19/2017 Last Documented On 7 1:27PM ; [facility] Paternal history of family h istory of cancer --FATHER has CML--diagnosed 11/201602/19/2017 Last Documented On 7 1:27PM ; [facility] Family history of cancer --FATHER has CM L--diagnosed 11/201611/24/2016 Last Documented On 7 1:27PM ; [facility] Discussion of family health status was jayy hale 06/12/2016 Last Documented On 7 1:27PM ; [facility] Family history of diabetes mellitus 05/15 Last Documented On 7 1:27PM ; [facility] Family history of arthritis 03/01/2009 Last Documented On 7 1:27PM ; [facility] Family history of defects 03/01/20 09 Last Documented On 7 1:27PM ; [facility] Family history of blood pressure was hig h 03/01/2009 Last Documented On 7 1:27PM ; [facility] No bleeding problems 03/01/2009 Last Documented On 7 1:27PM ; [facility] No family history of convulsions 009 Last Documented On 7 1:27PM ; [facility] No family history of stroke syndrome Last Documented On 7 1:27PM ; [facility] Review of Systems Includes: Review of [...] Time Diagnosis PROBLEM VISIT LISA SANTANA PA-C [facility] BLD[facility] 10/11/20 17 1:26PM 1:57PM Assessment of Pain During Urination (Dysuria),Vag initis Insurance Includes: Active Insurance Policies Plan Name Member ID Group # Subscriber Relationship Effect dayana Dates 1 - [facility] [id number] LILIA STOUT Child Clinical Notes Includes: Clinical Notes from this encounter No Clinical Notes Recorded
[2024-11-24 16:47] VITALS: BP 108/65; PULSE 113; RESP 16; TEMP 36.9; O2SAT 98
--- NOTE | 2024-11-24 17:13 | ED_ITS ---
HPI - URI/Sore Throat General Chief Complaint: Upper Respiratory Infection Stated Complaint: fever/aches/chills/cough Time Seen by Provider: 11/24/24 17:13 Source: patient Mode of arrival: ambulatory Limitations: no limitations History of Present Illness HPI Narrative: 24-year-old female presented for complaint of cough for 3 days. Started yesterday feeling worse with body aches, fever nasal congestion. Taking DayQuil, ibuprofen and Tylenol without significant improvement. Denies shortness of breath, wheezing nausea vomiting, diarrhea or lethargy. Endorses exposure to RSV. Related Data Allergies Allergy/AdvReac Type Severity Reaction Status Date / Time No Known Allergies Allergy Verified 03/29/24 14:01 Review of Systems Review of Systems: per HPI All systems reviewed & are unremarkable except as noted in HPI and below PMFSH Past Medical History Medical History Anxiety and depression Surgical History Surgical History History of placement of ear tubes History of tonsillectomy Social History Social History Smoking status: Current every day smoker Tobacco type: e-cigarettes/vaping Alcohol intake: current Alcohol use details: social Substance use type: does not use Living arrangements: with family Gender identity (if verbalized by the patient): Female Comments At time of signature, I have reviewed and agree with nursing past medical, surgical, social and family history unless otherwise noted. Please see nursing chart for further information. There is no relevant family history pertinent to the presenting complaint Exam Narrative: GENERAL: mildly ill-appearing, in no acute distress. EYES: EOMI. No redness or drainage. Conjunctivae normal. ENT: Mucous membranes pink and moist. congestion and rhinorrhea. TMs normal bilaterally. Throat normal. Uvula midline. NECK: Normal AROM. Supple. CHEST: No respiratory distress. Lungs clear to all welsh. HEART: Regular rate and rhythm. No murmur appreciated. SKIN: Warm, dry, no rash. Capillary refill normal. Normal skin turgor. NEURO: Alert and oriented x3. Gait steady. PSYCH: Normal affect. Course Course Emergency Course: Patient is aware of diagnosis, understands and agrees to treatment plan. Anticipatory guidance given. Patient agrees to follow-up as directed and is aware of reasons to seek care at the emergency department. Portions of this record may have been created with voice recognition software Level of Care: Express Care Visit Vital Signs Vital signs: Vital Signs Temperature 98.5 F 11/24/24 16:47 Pulse Rate 113 H 11/24/24 16:47 Respiratory Rate 16 11/24/24 16:47 Blood Pressure 108/65 11/24/24 16:47 Pulse Oximetry 98 11/24/24 16:47 Oxygen Delivery Room Air 11/24/24 16:47 Temperature 98.5 F 11/24/24 16:47 Pulse Rate 113 H 11/24/24 16:47 Respiratory Rate 16 11/24/24 16:47 Blood Pressure 108/65 11/24/24 16:47 Pulse Oximetry 98 11/24/24 16:47 Oxygen Delivery Room Air 11/24/24 16:47 MDM - URI/Sore Throat MDM Narrative Medical decision making narrative: Negative flu COVID. Discussed physical exam findings. Advised supportive measures and signs/symptoms to go to the ER. Pt is appropriate for outpt treatment and f/u. Differential Diagnosis Differential diagnosis: Likely upper respiratory infection, otitis media, sinusitis, viral infection, bronchitis, influenza, pharyngitis and other Discharge Plan Discharge Clinical Impression: Viral infection Patient Disposition: Home, Self-Care Condition: Stable Instructions: Antibiotic Form, Acute Bronchitis (ED) Additional Instructions: Acute bronchitis can be contagious because it is usually caused by infection with a virus or bacteria. It is usually for a few days but you can be contagious for up to one week. Avoid crowds until you do not have a fever and symptoms are improved Take medication as directed Recommend Flonase spray and Zyrtec (or Claritin/Cassandra) Prescribed Cough syrup may cause drowsiness; avoid driving or take it at night time. It has a narcotic component which can become addictive, use only as directed. Take the steroid as directed, start tomorrow Tylenol 1000mg every 8 hours as needed for pain Symptomatic treatment includes: rest, fluids, and increase humidity of the air at home. Follow up with your primary care provider as needed Go to the ER for worsening symptoms or concerns Patient Language: Greenlandic Prescriptions: New benzonatate 200 mg capsule 200 mg PO TID PRN (Reason: cough) Qty: 20 0RF codeine-guaifenesin [Guaifenesin AC] 10-100 mg/5 mL liquid 10 ml PO Q8H PRN (Reason: cough) Qty: 120 0RF prednisone 20 mg tablet 20 mg PO DAILY Qty: 5 0RF Follow-up/Referrals: Chambers,Chas Schwartz MD [Primary Care Provider] - Stand Alone Forms: Work/School Release IP Time of Disposition: 17:19
[2024-11-24 17:45] LABS: EDCOVIDSCREEN Negative (Negative); EDINFLUASCREEN Negative (Negative); EDINFLUBSCREEN Negative (Negative)
== END 2024-11-24 17:26 | disposition home or self-care (01) ==
PROVIDERS: Emergency Provider Nurse Practitioner Family; PCP Family Medicine
DX: B34.9 Viral infection, unspecified (principal); Z20.822 Contact with and (suspected) exposure to COVID-19; F17.290 Nicotine dependence, other tobacco product, uncomplicated
CPT/HCPCS: 87426; 87804; 99213; G0463